=== PATIENT | male | born 1955 ===

== ENCOUNTER → 2020-09-11 12:24 | Outpatient (BNVA) | payer MEDICARE, MEDICAID, SELFPAY | PROVIDERS: PCP Hospitalist; Referring Provider Hospitalist; Visit Provider Physician Assistant | DX: Z01.818 Encounter for other preprocedural examination (principal); Z86.73 Personal history of transient ischemic attack (TIA), and cerebral infarction without residual deficits; Z79.02 Long term (current) use of antithrombotics/antiplatelets | CPT/HCPCS: 99203 ==

== ENCOUNTER → 2020-11-22 09:15 | Outpatient (BNVA) | payer MEDICARE, MEDICAID, SELFPAY | PROVIDERS: PCP Hospitalist; Referring Provider Hospitalist; Visit Provider Nurse Practitioner Gerontology | DX: Z13.89 Encounter for screening for other disorder (principal) | CPT/HCPCS: Q3014 ==

== ENCOUNTER 2021-06-09 21:21 | Emergency (ER) | payer MEDICARE, MEDICAID, SELFPAY ==
[2021-06-09 21:36] VITALS: BP 128/90; BP 163/80; PULSE 88; RESP 16; O2SAT 95; O2SAT 98; BMI 27.1
--- NOTE | 2021-06-09 22:17 | PC.NURSE ---
BEATRIS DAUGHTER, SHE IS PTS RIDE WHEN HE IS DISCHARGED
--- NOTE | 2021-06-09 22:35 | ED.ALCOHOL ---
HPI - Alcohol General Chief Complaint: Fall Stated Complaint: ETOH Time Seen by Provider: 06/09/21 21:53 Source: patient Mode of arrival: EMS History of Present Illness HPI narrative: 65-year-old male alcohol intoxicated brought in by EMS after witnessed fall with head strike and no LOC. Family is at bedside and denies any noted change in patient's mentation. Related Data Home Medications Medication Instructions Recorded Confirmed cholecalciferol (vitamin D3) 50 50 mcg PO DAILY 11/22/20 11/22/20 mcg (2,000 unit) capsule rosuvastatin 40 mg tablet 40 mg PO DAILY 11/22/20 11/22/20 Previous Rx's Medication Instructions Recorded amlodipine 10 mg tablet 10 mg PO DAILY 90 Days #90 tab 01/15/21 carvedilol 25 mg tablet 25 mg PO BID 90 Days #180 tab 01/15/21 clopidogrel 75 mg tablet 75 mg PO DAILY 90 Days #90 tab 01/15/21 lisinopril 10 mg tablet 10 mg PO DAILY 90 Days #90 tab 01/15/21 pregabalin 75 mg capsule 75 mg PO BID 30 Days #60 cap 05/05/21 metformin 500 mg tablet 500 mg PO BID 30 Days #60 tab 05/30/21 insulin glargine 100 unit/mL (3 10 unit SUBCUT DAILY 90 Days #15 ml 05/31/21 mL) subcutaneous pen pen needle, diabetic 32 gauge x #30 ea 05/31/21 5/32 Allergies Allergy/AdvReac Type Severity Reaction Status Date / Time cyclobenzaprine Allergy Unknown Headache Verified 06/09/21 21:39 [From Flexeril] penicillamine Allergy Unknown tongue rash Verified 06/09/21 21:39 penicillin V Allergy Unknown rash Verified 06/09/21 21:39 trazodone Allergy Unknown palpitation Verified 06/09/21 21:39 s Review of Systems Review of Systems: Pertinent positives and negatives as stated in HPI 10 point review of systems otherwise negative. [facility] Past Medical History Source: nursing notes reviewed Medical History CVA (cerebral vascular accident) Diabetes Essential hypertension HTN (hypertension) Hyperlipidemia LDL goal <70 Type 2 diabetes mellitus with diabetic polyneuropathy Vitamin D deficiency Surgical History H/O colonoscopy History of bilateral cataract extraction Family History Family History Family/Other No problems noted. Father Myocardial infarction CVD (cardiovascular disease) Mother Diabetes Sister Diabetes Social History Social History Household Members: None Advance Directives: No Advance Directives Information Provided: Yes Physical Exam Vital Signs: Vital Signs: Last Vital Signs Pulse 88 06/09/21 21:36 Resp 16 06/09/21 21:36 BP 163/80 H 06/09/21 21:36 Pulse Ox 95 06/09/21 21:36 Body Mass Index 27.1 VITAL SIGNS: Reviewed. GENERAL: Alcohol intoxication, Well developed, well nourished, in no acute distress. HEAD: Normocephalic/start laceration over right eyebrow with good hemostasis EYES: PERRLA, EOMI EARS: Ext canals without abnormality, TMs non-bulging and non-erythematous NOSE: Nares patent bilateral OROPHARYNX: no oral lesions noted, posterior pharynx clear NECK: Supple, no adenopathy LUNGS: Normal breath sounds. No adventitious sounds or accessory muscle use. SpO2<95> CARDIOVASCULAR: Regular rate and rhythm without noted murmurs, no JVD or lower extremity edema. ABDOMEN: Soft, non-tender, non-distended with bowel sounds. SKIN: Inspection of the skin reveals no rashes NEUROLOGIC: Alert and oriented x 3, intoxicated, belligerent. Strength and sensation to light touch were grossly intact x 4. Course Course Course Narrative: 65-year-old male with history and clinical presentation consistent with alcohol intoxication leading to gait instability and a fall with head strike and laceration, no LOC. Lacerations repaired patient was provided with a Tdap and discharged home in otherwise stable condition to safe transport and environment with his daughter. Procedures Laceration Laceration 1: Site: face Side (If applicable): right Size (cm): 2 Description: stellate and irregular Depth: simple, single layer Local Anesthetic: lidocaine 2% and with epi Amount of anesthesia used (mL): 2 Pre-repair: wound explored, irrigated extensively and deep structures intact Skin layer closed with: nylon Size (cm): 3-0 Number of sutures: 3 Technique: simple, interrupted Discharge Plan Discharge Clinical Impression: Alcohol intoxication, Laceration Patient Disposition: Home, Self-Care Instructions: Alcohol Intoxication (ED), Alcohol Dependence (ED), Laceration (ED), Care For Your Stitches (ED) Additional Instructions: 1. Follow-up with your primary care provider in the next 5 days for suture removal or return to this ER. Return to ER for acute worsening of symptoms. Prescriptions: No Action amlodipine 10 mg tablet 10 mg PO DAILY 90 Days Qty: 90 RF: 3 carvedilol [Coreg] 25 mg tablet 25 mg PO BID 90 Days Qty: 180 RF: 3 clopidogrel 75 mg tablet 75 mg PO DAILY 90 Days Qty: 90 RF: 3 lisinopril 10 mg tablet 10 mg PO DAILY 90 Days Qty: 90 RF: 3 pregabalin 75 mg capsule 75 mg PO BID 30 Days Qty: 60 RF: 0 metformin 500 mg tablet 500 mg PO BID 30 Days Qty: 60 RF: 1 Basaglar KwikPen U-100 Insulin 100 unit/mL (3 mL) insulin pen 10 unit subcut DAILY 90 Days Qty: 15 RF: 0 (DME) pen needle, diabetic [BD Ultra-Fine Bernie Pen Needle] 32 gauge x 5/32 needle See Rx Instructions .ROUTE .MEDSUPPLY Qty: 30 RF: 11 cholecalciferol (vitamin D3) 50 mcg (2,000 unit) capsule 50 mcg PO DAILY RF: 0 rosuvastatin 40 mg tablet 40 mg PO DAILY RF: 0
[2021-06-09] MEDS: Diphth,Pertus(ACell),Tet Adult 0.5 ML SYRINGE IM (22:52)
[2021-06-09] MEDS: Lidocaine HCl 2%/Epi 1:100,000 20 ML VIAL INFILTRATI (22:53)
--- NOTE | 2021-06-09 23:04 | PC.NURSE ---
PT VERY INTOXICATED WHILE IN ED TONIGHT, COMBATIVE & INAPPROPRIATELY TOUCHING FEMALE STAFF. DR. CALIX SUTURED R EYE BROW, TDAP GIVEN PER EMAR. D/C INSTRUCTIONS GIVEN TO PTS DAUGHTER. PT BROUGHT TO FRONT BY SECURITY
== END 2021-06-09 23:26 | disposition home or self-care (01) ==
PROVIDERS: Emergency Provider Student in an Organized Health Care Education/Training Program
DX: F10.129 Alcohol abuse with intoxication, unspecified (principal); Y90.9 Presence of alcohol in blood, level not specified; S01.111A Laceration without foreign body of right eyelid and periocular area, initial encounter; E11.9 Type 2 diabetes mellitus without complications; I10 Essential (primary) hypertension; Z86.73 Personal history of transient ischemic attack (TIA), and cerebral infarction without residual deficits; Z79.84 Long term (current) use of oral hypoglycemic drugs; Z79.899 Other long term (current) drug therapy; W19.XXXA Unspecified fall, initial encounter; Y93.9 Activity, unspecified; Y92.9 Unspecified place or not applicable; Y99.9 Unspecified external cause status
CPT/HCPCS: 12011; 90471; 90715; 99283; 99284

== ENCOUNTER → 2021-06-15 11:12 | Outpatient (BNVA) | payer MEDICARE, MEDICAID, SELFPAY | PROVIDERS: PCP Hospitalist; Visit Provider Nurse Practitioner Gerontology | DX: E11.42 Type 2 diabetes mellitus with diabetic polyneuropathy (principal); E78.5 Hyperlipidemia, unspecified; I10 Essential (primary) hypertension; Z79.4 Long term (current) use of insulin | CPT/HCPCS: 82947; 99212 ==

== ENCOUNTER 2021-08-09 08:01 | Outpatient (REF) | payer MEDICARE, MEDICAID, SELFPAY ==
[2021-08-09 08:57] LABS: Estimated Average Glucose 131 mg/dL; Hemoglobin A1c % 6.2 %
[2021-08-09 09:04] LABS: Alanine Aminotransferase 30 U/L (0-40); Albumin Level 4.5 g/dL (3.5-5.0); Alkaline Phosphatase 119 U/L (39-117); Anion Gap 14 (12-20); Aspartate Amino Transferase 21 U/L (5-37); Bilirubin Total 0.9 mg/dL (0.0-1.0); Blood Urea Nitrogen 8 mg/dL (9-16); Calcium 9.8 mg/dL (8.4-10.2); Carbon Dioxide 27 mmol/L (22-29); Chloride 102 mmol/L (96-108); Cholesterol 239 mg/dL; Estimated Glomerular Filt Rate > 60; Glucose Fasting 127 mg/dL (60-99); HDL Cholesterol 33 mg/dL; LDL Cholesterol Calculated 150 mg/dl; Potassium 3.9 mmol/L (3.3-5.1); Sodium 139 mmol/L (135-145); Total Protein 7.9 g/dL (6.5-8.0); Triglycerides 283 mg/dL
[2021-08-09 10:02] LABS: Creatinine Urine 37.09 mg/dL; Microalbum/Creatinine Ratio Ur 579.6 ug/mg cr
[2021-08-10 21:21] LABS: LDL Cholesterol Direct 160 mg/dL (<100)
== END 2021-08-09 08:02 | disposition home or self-care (01) ==
LOC: HO.LAB 08:01
PROVIDERS: Absent Provider Nurse Practitioner Family; PCP Internal Medicine; Visit Provider Nurse Practitioner Gerontology
DX: Z12.5 Encounter for screening for malignant neoplasm of prostate (principal); E11.42 Type 2 diabetes mellitus with diabetic polyneuropathy; Z79.4 Long term (current) use of insulin
CPT/HCPCS: 36415; 80053; 80061; 82043; 83036; 83721; 84153

== ENCOUNTER 2022-01-01 10:36 | Outpatient (REF) | payer MEDICARE, MEDICAID, SELFPAY ==
[2022-01-01 10:56] LABS: MANUAL DIFF FLAG NO
[2022-01-01 11:24] LABS: Basophils Absolute Auto 0.1 X10*3/uL (0.0-0.2); Basophils Percent Auto 0.8 % (0-2); Eosinophils Absolute Auto 0.1 X10*3/uL (0.0-0.4); Eosinophils Percent Auto 1.9 % (0-4); Hematocrit 47.5 % (42.0-52.0); Hemoglobin 16.3 g/dl (14.0-18.0); Imm Gran Abs Auto 0.02 X10*3/uL (0.00-0.03); Imm Gran Pct Auto 0.3 % (0.0-0.4); Lymphocytes Absolute Auto 2.3 X10*3/uL (1.2-4.9); Lymphocytes Percent Auto 30.6 % (20-40); Mean Corpuscular HGB Conc 34.3 g/dl (31.0-36.0); Mean Corpuscular Hemoglobin 31.8 pg (27.0-33.0); Mean Corpuscular Volume 92.8 fL (80.0-98.0); Mean Platelet Volume 10.5 fL (9.4-12.4); Monocytes Absolute Auto 0.4 X10*3/uL (0.1-1.2); Monocytes Percent Auto 5.3 % (2-11); Neutrophils Absolute Auto 4.5 x10*3/uL (2.0-8.3); Neutrophils Percent Auto 61.1 % (45-73); Platelet Count 263 X10*3/uL (160-400); Red Blood Count 5.12 X10*6/uL (4.60-5.80); Red Cell Distribution Width 16.1 % (11.0-16.0); White Blood Count 7.4 X10*3/uL (4.8-10.8)
[2022-01-01 12:02] LABS: Alanine Aminotransferase 20 U/L (0-40); Albumin Level 4.3 g/dL (3.5-5.0); Alkaline Phosphatase 123 U/L (39-117); Anion Gap 12 (12-20); Aspartate Amino Transferase 19 U/L (5-37); Bilirubin Total 0.8 mg/dL (0.0-1.0); Blood Urea Nitrogen 6 mg/dL (9-16); Calcium 9.8 mg/dL (8.4-10.2); Carbon Dioxide 30 mmol/L (22-29); Chloride 100 mmol/L (96-108); Cholesterol 263 mg/dL; Estimated Glomerular Filt Rate > 60; Glucose Fasting 121 mg/dL (60-99); HDL Cholesterol 40 mg/dL; LDL Cholesterol Calculated 177 mg/dl; Potassium 4.4 mmol/L (3.3-5.1); Sodium 138 mmol/L (135-145); Triglycerides 234 mg/dL
[2022-01-01 12:19] LABS: Creatinine Urine 27.97 mg/dL
[2022-01-01 12:37] LABS: Microalbum/Creatinine Ratio Ur 2981.7 ug/mg cr
[2022-01-06 14:10] LABS: Vitamin D 25-OH, D2 <4 ng/mL; Vitamin D 25-OH, D3 31 ng/mL; Vitamin D 25-OH, Total 31 ng/mL (30-100)
== END 2022-01-01 10:37 | disposition home or self-care (01) ==
LOC: HO.LAB 10:36
PROVIDERS: PCP Internal Medicine; Visit Provider Internal Medicine
DX: E78.5 Hyperlipidemia, unspecified (principal); E55.9 Vitamin D deficiency, unspecified; D64.9 Anemia, unspecified; E11.42 Type 2 diabetes mellitus with diabetic polyneuropathy; Z79.4 Long term (current) use of insulin
CPT/HCPCS: 36415; 80053; 80061; 82043; 82306; 85025

== ENCOUNTER 2022-07-10 07:51 | Outpatient (REF) | payer MEDICARE, MEDICAID, SELFPAY ==
[2022-07-10 09:13] LABS: Prostate Specific Antigen 1.12 ng/mL (<0.05-4.0)
== END 2022-07-10 07:52 | disposition home or self-care (01) ==
LOC: HO.LAB 07:51
PROVIDERS: Nurse Practitioner Family; PCP Internal Medicine; Visit Provider Internal Medicine
DX: Z12.5 Encounter for screening for malignant neoplasm of prostate (principal)
CPT/HCPCS: 36415; 84153

== ENCOUNTER 2023-01-02 10:39 | Outpatient (REF) | payer MEDICARE, MEDICAID, SELFPAY ==
[2023-01-02 12:45] LABS: Appearance Urine Clear; Color Urine Yellow; Glucose Urine UA Negative (Negative); Leukocyte Esterase Urine Negative (Negative); Nitrite Urine Negative (Negative); Specific Gravity - Urine 1.015 (1.005-1.025); UMIC TRIGGER UA YES; Urine Blood Negative (Negative); Urine Ketones Negative (Negative); Urine Protein 30 (1+) mg/dL (Neg-Trace)
[2023-01-02 12:53] LABS: Bacteria Urine None Seen (None Seen); Hyaline Casts Urine 0-2 /LPF (0-2); RBC Urine 0-2 /HPF (0-2); Squamous Epithelial Cell Urine 0-2 /HPF (0-2); WBC Urine 0-5 /HPF (0-5)
[2023-01-02 12:58] LABS: Anion Gap 14 (12-20); Blood Urea Nitrogen 7 mg/dL (9-16); Calcium 9.2 mg/dL (8.4-10.2); Carbon Dioxide 27 mmol/L (22-29); Chloride 106 mmol/L (96-108); Estimated Glomerular Filt Rate > 60; Potassium 4.8 mmol/L (3.3-5.1); Sodium 142 mmol/L (135-145)
[2023-01-02 13:06] LABS: Creatinine Urine 117.51 mg/dL; Microalbum/Creatinine Ratio Ur 116.5 ug/mg cr; Protein/Creatinine Ratio, Ur 0.32 (<0.2); Total Protein Urine Random 38 mg/dL (<12)
[2023-01-03 07:19] LABS: Hepatitis B Surface Antigen Negative (Negative); ~Hepatitis B Surface Antibody NONREACTIVE (Nonreactive); ~Hepatitis C Antibody Nonreactive (Nonreactive)
[2023-01-03 07:53] LABS: HBsAGNum1 0.25 S/CO (0.00-0.99); ~HepC Num1 0.12 S/CO (0.00-0.79)
[2023-01-07 09:04] LABS: Hepatitis B Core Antibody IgM NON-REACTIVE (NON-REACTIVE)
[2023-01-07 15:48] LABS: Anti Nuclear Antibody Screen NEGATIVE (NEGATIVE)
[2023-01-08 09:09] LABS: Complement C3 134 mg/dL (82-185); Prot Elec - Albumin 4.4 g/dL (3.8-4.8); Prot Elec - Alpha1 0.3 g/dL (0.2-0.3); Prot Elec - Alpha2 0.6 g/dL (0.5-0.9); Prot Elec - Beta 1 0.5 g/dL (0.4-0.6); Prot Elec - Beta 2 0.4 g/dL (0.2-0.5); Prot Elec - Gamma 1.5 g/dL (0.8-1.7); Prot Elec - Total Protein 7.7 g/dL (6.1-8.1)
[2023-01-09 15:43] LABS: Kappa, Serum 315 mg/dL (176-443); Kappa/Lambda Ratio, Serum 1.46 (1.29-2.55); Lambda, Serum 216 mg/dL (91-240)
== END 2023-01-02 10:40 | disposition home or self-care (01) ==
LOC: HO.LAB 10:39
PROVIDERS: PCP Internal Medicine; Visit Provider Internal Medicine Nephrology
DX: R80.1 Persistent proteinuria, unspecified (principal); I10 Essential (primary) hypertension; E11.9 Type 2 diabetes mellitus without complications
CPT/HCPCS: 36415; 80051; 81001; 82043; 82310; 82565; 83883; 84156; 84165; 84520; 86038; 86039; 86160; 86705; 86706; 86803; 87340

== ENCOUNTER 2024-06-30 13:16 | Outpatient (AMB) | payer MEDICARE, MEDICAID, SELFPAY ==
--- NOTE | 2024-06-30 13:42 | A.OFFVIS_ITS ---
Intake Vital Signs 06/30/24 13:43 Height 5 ft 6 in Weight 186 lb BMI 30.0 BP 140/80 H Blood Pressure Location Lt brachial Position Sitting Intake Visit Reasons: Subsequent Annual Wellness State Inspector Required: No Accompanied by: Self / Same As Patient Allergies penicillamine Allergy (Intermediate, Verified 06/30/24 14:32) tongue rash penicillin V Allergy (Intermediate, Verified 06/30/24 14:32) rash trazodone Allergy (Intermediate, Verified 06/30/24 14:32) palpitations cyclobenzaprine [From Flexeril] Adverse Reaction (Intermediate, Verified 06/30/24 14:32) Headache Medication List - Last Reconciled 06/30/24 by Glory Gong MD amlodipine 10 mg PO DAILY 90 days ammonium lactate 12% topical carvedilol (Coreg) 25 mg PO BID 90 days clopidogrel 75 mg PO DAILY 90 days ezetimibe 10 mg PO DAILY 90 days insulin glargine (Basaglar KwikPen U-100 Insulin) 10 units (0.1 mL) subcut DAILY 90 days metformin 500 mg PO BID pen needle, diabetic (BD Ultra-Fine Bernie Pen Needle) As directed once daily pregabalin 75 mg PO BID 30 days rosuvastatin 40 mg PO DAILY 90 days HPI HPI Comments History of Present Illness Details This is a 68-year-old male with diabetes mellitus type 2 complicated by polyneuropathy on long-term current use of insulin that comes today for his Medicare wellness. A1c within goal. Last Cologuard was 2020 and another Cologuard will be repeated this year. Walks with a cane for gait stability. PPP handed to patient. Complains of blurry vision and would like to see Ophthalmology again. [facility] Medical History (Updated 06/30/24 @ 20:24 by Glory Gong MD) Obesity (BMI 30-39.9) Alcohol abuse Microalbuminuria due to type 2 diabetes mellitus Screening for prostate cancer Essential hypertension Hyperlipidemia LDL goal <70 Type 2 diabetes mellitus with diabetic polyneuropathy Vitamin D deficiency CVA (cerebral vascular accident) HTN (hypertension) Diabetes Surgical History History of bilateral cataract extraction H/O colonoscopy Family History Family/Other No problems noted. Father Myocardial infarction CVD (cardiovascular disease) Mother Diabetes Sister Diabetes Social History Household Members: None Housing: Apartment Alcohol intake: current Alcohol intake frequency: a few times a week Alcohol type: beer and hard liquor Patient Tobacco Use Status: Current everyday Tobacco user Tobacco use type: Cigarette Cigarettes Per Day: 5 e-Cigarette/Vaping Use: Never Used Second Hand Smoke Exposure: No service: No Current occupational status: unemployed and disabled Cognitive needs: Yes Hearing needs: No Vision needs: No Questionnaire Medicare Wellness Checkup What [age] What gender do you identify with?: male During the past 4 weeks, how much have you been bothered by emotional problems such as feeling anxious, depressed, irritable, sad or downhearted, and blue?: not at all During the past 4 weeks, has your physical & emotional health limited your social activities with family, friends, neighbors, or groups?: not at all During the past 4 weeks, how much bodily pain have you generally had?: moderate pain During the past 4 weeks, was someone available to help you if you needed & wanted help?: no, not at all During the past 4 weeks, what was the hardest physical activity you could do for at least 2 minutes?: very light Can you get to places out of walking distance without help? (For eg., can you travel alone on buses, taxis or drive your car?): No Can you go shopping for groceries or clothes without someone's help?: Yes Can you prepare your own meals?: Yes Can you do your housework without help?: Yes (limited ) Because of any health problems, do you need the help of another person with your personal care needs such as eating, bathing, dressing or getting around the house?: No Can you handle your own money without help?: Yes During the past 4 weeks, how would you rate your health in general?: good During the past 4 weeks how have things been going for you?: pretty well Are you having difficulties driving your car?: not applicable, I don't use a car Do you always fasten your seat belt when you are in a car?: yes, usually During past 4 weeks, have you been bothered by the following: never: Sexual problems?, Trouble eating well?, Teeth or denture problems?, Problems using the telephone? and Tiredness or fatigue? and seldom: Falling or dizzy when standing up Have you fallen 2 or more times in the past year?: No Are you afraid of falling?: Yes Are you a smoker?: yes, and I might quit During the past 4 weeks, how many drinks of wine, beer, or other alcoholic beverages did you have?: 10 or more per week Do you exercise for about 20 minutes 3 or more times a week?: no, I usually do not exercise this much Have you been given information to help with the following?: yes: Keeping track of your medications? and no: Hazards in your house that might hurt you? How often do you have trouble taking medicines the way you have been told to take them?: I always take medicine as prescribed How confident are you that you can control & manage most of your health problems?: very confident What is your race?: or origin or descent Mini Mental State Exam (MMSE) Orientation What is the (year) (season) (date) (day) (month)?: year, season, date, day and month Where are we (state) (county) (town or city) (hospital) (floor)?: state, county, town or city and hospital/clinic Registration Name of 3 unrelated objects clearly and slowly, then ask patient to repeat all 3 of them. (1st repeat determines score. Make sure they can repeat all three): object 1, object 2 and object 3 Attention & Calculation (CHOOSE ONE) Spell WORLD backwards (DLROW): 5 letters Recall Ask patient to repeat the 3 items from question #3.: object 1, object 2 and object 3 Language Show patient a wristwatch & ask what it is. Repeat for pencil.: watch and pencil Ask the patient to repeat the phrase 'No ifs, ands, or buts' after you.: incorrect Ask the patient to 'take a piece of paper with their right hand' 'fold paper in half' 'place paper on floor': take paper in right hand, fold paper in half and place paper on floor Print the sentence 'CLOSE YOUR EYES' on a piece. If patient actually closes eyes then score.: followed written direction Score Score: 26 Activity of Daily Living Bathing - sponge bath, tub bath or shower: receives no assistance (gets in/out by self, if usual bathing means Dressing - getting clothes from closets & drawers, including inner/outer garments & fasteners.: gets clothes & gets completely dressed without help Toileting - going to the 'toilet room' for urine/bowel elimination & cleaning self/arranging clothes: goes to toilet room, cleans self, arranges clothes without help Transfer: moves in & out of bed and chair without help (may use support object) Continence: controls urination/bowel movements completely by self Feeding: feeds self without help Total Score: 0 Information obtained from: patient Using telephone: independent Traveling: independent Shopping: independent Preparing meals: independent Housework: independent Taking medicine: independent Managing money: independent PHQ-9 Over the last 2 weeks, how often have you been bothered by any of the following problems? 1. Little interest or pleasure in doing things: not at all 2. Feeling down, depressed, or hopeless: not at all 3. Trouble falling or staying asleep, or sleeping too much: not at all 4. Feeling tired or having little energy: not at all 5. Poor appetite or overeating: not at all 6. Feeling bad about yourself - or that you are a failure or have let yourself or your family down: not at all 7. Trouble concentrating on things, such as reading the newspaper or watching television: not at all 8. Moving or speaking so slowly that other people could have noticed. Or the opposite - being so fidgety or restless that you have been moving around a lot more than usual: not at all 9. Thoughts that you would be better off or of hurting yourself in some way: not at all Total score: 0 Depression Screening Interpretation: Negative Depression Screening Done: Yes 61455 - PHQ-9 Billing: Yes Source: Developed by Drs. Idris Orellana, Tova Santiago, Andrey Mir and colleagues, with an educational royer from [employer]. AUDIT C Alcohol Use Questionnaire (AUDIT-C) 1. How often do you have a drink containing alcohol?: 2-3 times a week 2. How many drinks containing alcohol do you have on a typical day when you are drinking?: 3 or 4 3. How often do you have six or more drinks on one occasion?: Never Total Score: 4 Thrive Questionnaire Date Thrive assessed: 06/30/24 I am a: Patient What is your living situation today?: I have a steady place to live Within the past 12 months, did the food you bought not last and you didn't have the money to get more?: Never true Within the past 12 months, did you worry whether your food would run out before you got money to buy more?: Never true Do you have trouble paying for medicines?: No Do you have trouble getting transportation to medical appointments?: No Do you have trouble paying your heating and electricity bill?: No Do you have trouble taking care of your child, family member or friend?: No Do you have trouble with day-to-day activities such as bathing, preparing meals, shopping, managing finances, etc.?: No Are you currently unemployed and looking for a job?: No Are you interested in more education?: No Please select the resources that you would like help with: None Currently or been in a relationship where the following occur: No concerns reported THRIVE Score: 0 Fall Risk Assessment Fall Risk Assessment Fall risk assessment: No Falls in past year PANFILO-7 AMB Questionnaire PANFILO-7 Date PANFILO - 7 assessed: 06/30/24 Feeling nervous, anxious, or on edge: 0 = Not at all Not being able to stop or control worryin = Not at all Worrying too much about different things: 0 = Not at all Trouble relaxin = Not at all Being so restless that it is hard to sit still: 0 = Not at all Becoming easily annoyed or irritable: 0 = Not at all Feeling afraid as if something awful might happen: 0 = Not at all Total PANFILO-7 score (0-4 normal; 5-9 mild; 10-14 moderate; 15-21 severe): 0 Source: Developed by Drs. Idris Orellana, Tova Santiago, Andrey Mir and colleagues, with an educational royer from [employer]. PANFILO-7 Assessment Billing PANFILO-7 Assessment Tool: PANFILO-7 Assessment 00454 Review of Systems Const All systems reviewed & are unremarkable except as noted in HPI and below Card Denies chest pain at rest, Denies chest pain with activity, Denies edema, Denies irregular heart rhythm, Denies claudication, Denies dyspnea, Denies dyspnea on exertion, Denies orthopnea, Denies paroxysmal nocturnal dyspnea and Denies slow heart rate Resp Denies cough, Denies dyspnea and Denies dyspnea on exertion Physical Exam Vital Signs: Last Vital Signs BP 140/80 H 06/30/24 13:43 BMI result Body Mass Index 30.0 Const Limitations: ambulation with cane Resp Effort & Inspection: normal respiratory effort Auscultation: clear to auscultation bilaterally Cardio Jugular venous distension: no JVD Rate: regular rate Rhythm: regular rhythm Heart sounds: S1 normal heart sound present and S2 normal heart sound present Neuro Romberg Test: Negative Extrem General: Yes full ROM Results AMB Hemoglobin A1c AMB Hemoglobin A1c 6.2 % Last Edit by CHRISSIE Hester on 06/30/24 14:1 2 Immunizations pneumoc 20-regina conj-dip cr(PF) 0.5 mL IM syringe Performing Provider: Glory Gong MD Performing Location: [facility] Administered by: CHRISSIE Hester on 06/30/24 14:51 Dose Route Admin Location Dispensed Lot Number Expiration Date NDC Nurse Special 0.5 mL IM Left Deltoid 0.5 mL [id number] 06/24/25 [employer] VIS Given Date VIS Provided VIS Publication Date 06/30/24 Single Vaccine 21 Eligibility Eligibility Date Funding Source Not VFC Eligible 06/30/24 Private Results Reviewed Results Reviewed: Laboratory Last Values Hgb A1c (Clinic) 6.2 % (4.0-6.0) H 06/30/24 13:58 Assessment & Plan Assessment & Plan (1) Encounter for Medicare annual wellness exam: Code(s): Z00.00 - Encounter for general adult medical examination without abnormal findings Plan: Repeat in a year. (2) Type 2 diabetes mellitus with diabetic polyneuropathy: Code(s): E11.42 - Type 2 diabetes mellitus with diabetic polyneuropathy Qualifiers: Diabetes mellitus half-way insulin use: with half-way use Qualified Code(s): E11.42 - Type 2 diabetes mellitus with diabetic polyneuropathy; Z79.4 - local company intermodal truck driver (current) use of insulin Plan: Continue insulin and metformin. A1c goal is equal or less than 7%. (3) Blurry vision: Code(s): H53.8 - Other visual disturbances Plan: Referred to Ophthalmology. Orders: Orders AMB Hemoglobin A1c Today E11.42 - Type 2 diabetes mellitus with diabetic polyneuropathy, Z79.4 - local company intermodal truck driver (current) use of insulin Lipid Panel 4 Months E78.5 - Hyperlipidemia, unspecified Microalbumin, Random (w Creat) 4 Months E11.9 - Type 2 diabetes mellitus without complications Pneumococcal 20 Immunization Today Z23 - Encounter for immunization Comprehensive [place]. Panel Fast 4 Months E11.42 - Type 2 diabetes mellitus with diabetic polyneuropathy, Z79.4 - local company intermodal truck driver (current) use of insulin Referrals Ophthalmology Referral H53.8 - Other visual disturbances Cologuard Test Z12.11 - Encounter for screening for malignant neoplasm of colon, Z12.12 - Encounter for screening for malignant neoplasm of rectum Quality Reporting (2019) Fall Risk Screening ([facility] [address]) Fall risk assessment: No Falls in past year Depression/Bipolar (159/160/161/177) PHQ-9: Total score: 0 Coding Level of Care Code Medicare First (G0438) Est Pt Level 3 (19951) Diagnoses Encounter for Medicare annual wellness exam Z00.00 Type 2 diabetes mellitus with diabetic polyneuropathy, with long-term current use of insulin E11.42; Z79.4 Diabetes mellitus half-way insulin use: with technician terminal and repeater use Blurry vision H53.8 CPT Codes Advance Care Planning - Time spent: 1-15 minutes, on File ([id number]) Additional Codes PANFILO-7 Assessment Billing - PANFILO-7 Assessment Tool: PANFILO-7 Assessment 45620 ([id number]) Time Spent (min) 35 Advance Care Planning Advance Care Planning discussion: Exists, not on file Date of discussion: 06/30/24 Who was present: patient and me Forms completed: Health Care Proxy Time spent: 1-15 minutes, on File Actual minutes spent: 1
[2024-06-30 13:43] VITALS: BP 140/80
== END 2024-06-30 14:51 | disposition home or self-care (01) ==
PROVIDERS: PCP Internal Medicine; Visit Provider Internal Medicine
DX: Z00.00 Encounter for general adult medical examination without abnormal findings (principal); E11.42 Type 2 diabetes mellitus with diabetic polyneuropathy; Z79.4 Long term (current) use of insulin; Z23 Encounter for immunization; H53.8 Other visual disturbances
CPT/HCPCS: 1123F; 83036; 90471; 90677; 99213; G0438; G0439

== ENCOUNTER 2024-12-06 10:18 | Outpatient (AMB) | payer MEDICARE, MEDICAID, SELFPAY ==
[2024-12-06 10:30] VITALS: BP 124/70
--- NOTE | 2024-12-06 10:30 | A.OFFPC_ITS ---
Vital Signs 12/06/24 10:30 Height 5 ft 6 in Weight 186 lb BMI 30.0 BP 124/70 Blood Pressure Location Lt brachial Position Sitting Intake Visit Reasons: 4mth f/u Intake Note: Patient here for a 4 month follow up Radiological Defense Officer Required: Yes Radiological Defense Officer Language: Package Dyer Name: Glory Gong MD Accompanied by: Self / Same As Patient Allergies penicillamine Allergy (Intermediate, Verified 12/06/24 10:43) tongue rash penicillin V Allergy (Intermediate, Verified 12/06/24 10:43) rash trazodone Allergy (Intermediate, Verified 12/06/24 10:43) palpitations cyclobenzaprine [From Flexeril] Adverse Reaction (Intermediate, Verified 12/06/24 10:43) Headache Medication List - Last Reconciled 12/06/24 by Glory Gong MD amlodipine 10 mg PO DAILY 90 days ammonium lactate 12% topical carvedilol (Coreg) 25 mg PO BID 90 days clopidogrel 75 mg PO DAILY 90 days ezetimibe 10 mg PO DAILY 90 days insulin degludec (Tresiba FlexTouch U-100 insulin) 10 units (0.1 mL) subcut DA JAVIER 90 days insulin glargine (Basaglar KwikPen U-100 Insulin) 10 units (0.1 mL) subcut DAILY 90 days metformin 500 mg PO BID pen needle, diabetic (BD Ultra-Fine Bernie Pen Needle) As directed once daily pregabalin 75 mg PO BID 30 days rosuvastatin 40 mg PO DAILY 90 days Tobacco use date assessed: 12/06/24 Fall risk assessment: No Falls in past year Last assessed Fall Risk: 12/06/24 Dental Screening Dental Screen Date: 12/06/24 Did you have a dental visit in the last 12 months?: No Did you have a dental problem in the last 6 months where you did not have access to dental care?: No Was dental information given to patient?: Patient has dentist HPI HPI Comments History of Present Illness Details The patient is a 69-year-old male presenting with follow-up concerns regarding medication management for hypertension, diabetes mellitus type 2 on long-term current use of insulin complicated by polyneuropathy and hypercholesterolemia. The patient reports taking Lisinopril, 10 mg, for hypertension and Carvedilol, 25 mg daily, along with Ezetimibe, 10 mg, for cholesterol. He also takes Clopidogrel, 75 mg, for coronary artery disease. The patient notes a history of cerebrovascular accident with no residual deficit diagnosed in 2007, without persistent weakness on either side. He has a known allergy to penicillamine, penicillin, trazodone, and Flexeril. He reports regular tobacco use, smoking five cigarettes daily, and expresses no interest in cessation. Will order ultrasound of abdomen to rule out abdominal aortic aneurysm. The patient indicates routine physical function without significant limitations, although he occasionally uses a cane. There is no report of recent chest pain or significant shortness of breath. He does not currently take low- dose aspirin for stroke prevention but is on Clopidogrel. Past interventions have included routine management and medications aimed at his chronic conditions. [facility] Medical History (Updated 06/30/24 @ 20:24 by Glory Gong MD) Obesity (BMI 30-39.9) Alcohol abuse Microalbuminuria due to type 2 diabetes mellitus Screening for prostate cancer Essential hypertension Hyperlipidemia LDL goal <70 Type 2 diabetes mellitus with diabetic polyneuropathy Vitamin D deficiency CVA (cerebral vascular accident) HTN (hypertension) Diabetes Surgical History History of bilateral cataract extraction H/O colonoscopy Family History Family/Other No problems noted. Father Myocardial infarction CVD (cardiovascular disease) Mother Diabetes Sister Diabetes Social History Household Members: None Housing: Apartment Alcohol intake: current Alcohol intake frequency: a few times a week Alcohol type: beer and hard liquor Patient Tobacco Use Status: Current everyday Tobacco user Tobacco use type: Cigarette Cigarettes Per Day: 5 e-Cigarette/Vaping Use: Never Used Second Hand Smoke Exposure: No service: No Current occupational status: unemployed and disabled Cognitive needs: Yes Hearing needs: No Vision needs: No Questionnaire PHQ-9 Over the last 2 weeks, how often have you been bothered by any of the following problems? 1. Little interest or pleasure in doing things: not at all 2. Feeling down, depressed, or hopeless: not at all 3. Trouble falling or staying asleep, or sleeping too much: not at all 4. Feeling tired or having little energy: not at all 5. Poor appetite or overeating: not at all 6. Feeling bad about yourself - or that you are a failure or have let yourself or your family down: not at all 7. Trouble concentrating on things, such as reading the newspaper or watching television: not at all 8. Moving or speaking so slowly that other people could have noticed. Or the opposite - being so fidgety or restless that you have been moving around a lot more than usual: not at all 9. Thoughts that you would be better off or of hurting yourself in some way: not at all Total score: 0 Depression Screening Interpretation: Negative Depression Screening Done: Yes 90136 - PHQ-9 Billing: Yes Source: Developed by Drs. Idris Orellana, Tova Santiago, Andrey Mir and colleagues, with an educational royer from [employer]. Thrive Questionnaire Date Thrive assessed: 12/06/24 I am a: Patient What is your living situation today?: I have a steady place to live Within the past 12 months, did the food you bought not last and you didn't have the money to get more?: Never true Within the past 12 months, did you worry whether your food would run out before you got money to buy more?: Never true Do you have trouble paying for medicines?: No Do you have trouble getting transportation to medical appointments?: No Do you have trouble paying your heating and electricity bill?: No Do you have trouble taking care of your child, family member or friend?: No Do you have trouble with day-to-day activities such as bathing, preparing meals, shopping, managing finances, etc.?: No Are you currently unemployed and looking for a job?: No Are you interested in more education?: No Please select the resources that you would like help with: None Currently or been in a relationship where the following occur: No concerns reported THRIVE Score: 0 AUDIT C Alcohol Use Questionnaire (AUDIT-C) 1. How often do you have a drink containing alcohol?: 2-4 times a month 2. How many drinks containing alcohol do you have on a typical day when you are drinking?: 1 or 2 3. How often do you have six or more drinks on one occasion?: Never Total Score: 2 Score Reviewed/Action Taken: No PANFILO-7 AMB Questionnaire PANFILO-7 Date PANFILO - 7 assessed: 12/06/24 Feeling nervous, anxious, or on edge: 0 = Not at all Not being able to stop or control worryin = Not at all Worrying too much about different things: 0 = Not at all Trouble relaxin = Not at all Being so restless that it is hard to sit still: 0 = Not at all Becoming easily annoyed or irritable: 0 = Not at all Feeling afraid as if something awful might happen: 0 = Not at all Total PANFILO-7 score (0-4 normal; 5-9 mild; 10-14 moderate; 15-21 severe): 0 Source: Developed by Drs. Idris Orellana, Tova Santiago, Andrey Mir and colleagues, with an educational royer from [employer]. PANFILO-7 Assessment Billing PANFILO-7 Assessment Tool: PANFILO-7 Assessment 47727 Review of Systems Const All systems reviewed & are unremarkable except as noted in HPI and below Card Denies chest pain at rest, Denies chest pain with activity, Denies edema, Denies irregular heart rhythm, Denies claudication, Denies dyspnea, Denies dyspnea on exertion, Denies orthopnea, Denies paroxysmal nocturnal dyspnea and Denies slow heart rate Resp Denies cough, Denies dyspnea and Denies dyspnea on exertion GI Denies abdominal pain, Denies change in bowel habits, Denies excessive flatus, Denies nausea and Denies vomiting Musc Denies abnormal gait Neuro Denies abnormal gait, Denies behavioral changes and Denies lack of coordination Psych Denies behavioral changes Physical exam (Primary Care) Vital Signs: Last Vital Signs BP 124/70 12/06/24 10:30 BMI result Body Mass Index 30.0 BMI Assessment/Plan discussion: High BMI High, discussed plan: lifestyle, weight reduction, dietary and physical activity Tobacco/Smoking Status: Tobacco use Status Tobacco use date assessed 12/06/24 12/06/24 10:36 Patient Tobacco Use Status Current everyday Tobacco 12/06/24 10:30 Tobacco use type Cigarette 12/06/24 10:30 e-Cigarette/Vaping Use Never Used 12/06/24 10:30 Are you ready to quit: No Tobacco cessation counseling provided: Yes Items discussed: Nicotine replacement and QuitWorks Relapse Prevention: discussed the importance of a supportive environment, dis cussed extending NRT, discussed negative mood or depression after quitting, weight gain after smoking is common and discussed dietary, exercise and/or lifestyle changes Number of minutes spent counselin CPT code: 97365 - 4-10 Minutes PHQ-9: PHQ-9 Score PHQ-9: Total score 0 12/06/24 10:47 Depression Screening Interpretation: Negative Thrive Assessment: Date of Thrive Assessment Date Thrive assessed 12/06/24 12/06/24 10:36 Currently or been in a relationship where the following occur: No concerns reported Const General: cooperative Limitations: ambulation with cane Resp Effort & Inspection: normal respiratory effort Auscultation: clear to auscultation bilaterally Cardio Jugular venous distension: no JVD Rate: regular rate Rhythm: regular rhythm Heart sounds: S1 normal heart sound present and S2 normal heart sound present Neuro General: no focal motor deficits Extrem General: Yes full ROM Psych Appearance: grossly normal Office Procedures Flu Questionnaire Does the patient have a severe egg allergy?: No Results AMB Hemoglobin A1c AMB Hemoglobin A1c 6.1 % Last Edit by CHRISSIE Hester on 12/06/24 10:4 8 Immunizations Fluarix Triv [id number] (PF) 45 mcg (15 mcg x 3)/0.5 mL IM syringe Performing Provider: Glory Gong MD [facility] [place] Documented (not given) by: CHRISSIE Hester on 12/06/24 10:54 Reason Not Given: Patient Refused Results Reviewed Results Reviewed: Laboratory Last Values Hgb A1c (Clinic) 6.1 % (4.0-6.0) H 12/06/24 10:37 Coding Level of Care Code Est Pt Level 4 (12814) Complex EM visit Add On G2211 Diagnoses Type 2 diabetes mellitus with diabetic polyneuropathy, with long-term current use of insulin E11.42; Z79.4 Diabetes mellitus medical terminologist insulin use: with medical terminologist use Essential hypertension I10 Hyperlipidemia LDL goal <70 E78.5 Smoker F17.200 Additional Codes PHQ-9 - 19609 - PHQ-9 Billing: Yes ([id number]) PANFILO-7 Assessment Billing - PANFILO-7 Assessment Tool: PANFILO-7 Assessment 97000 ([id number]) Vital Signs *Quality* - CPT code: 18450 - 4-10 Minutes ([id number]) Time Spent (min) 24 Assessment & Plan Assessment & Plan (1) Type 2 diabetes mellitus with diabetic polyneuropathy: Code(s): E11.42 - Type 2 diabetes mellitus with diabetic polyneuropathy Category: Medical Qualifiers: Diabetes mellitus residential insulin use: with medical terminologist use Qualified Code(s): E11.42 - Type 2 diabetes mellitus with diabetic polyneuropathy; Z79.4 - parts counterman (current) use of insulin (2) Essential hypertension: Code(s): I10 - Essential (primary) hypertension Category: Medical (3) Hyperlipidemia LDL goal <70: Code(s): E78.5 - Hyperlipidemia, unspecified Category: Medical (4) Smoker: Code(s): F17.200 - Nicotine dependence, unspecified, uncomplicated Category: Social Hx Plan - Assess for potential medication adjustments, specifically considering the substitution of Clopidogrel with Aspirin for antiplatelet therapy. - Continue current antihypertensive and hypercholesterolemia management with Lisinopril, Carvedilol, and Ezetimibe. - Schedule an abdominal ultrasound to screen for aortic aneurysm due to smoking history. - Perform routine lab work including anemia assessment and urinalysis. - Provide support and counseling for tobacco cessation with appropriate resour kyara and follow-up. Patient was informed and verbally consented to the use of an ambient scribe for clinic note documentation during this visit. During our discussion, I explained the potential to replace Clopidogrel with Aspirin as an antiplatelet treatment. We reviewed the need for an abdominal ultrasound to rule out an aortic aneurysm due to the patient's smoking history. We discussed the importance of obtaining routine labs to manage anemia and monitor overall health. I provided information on smoking cessation, acknowledging potential withdrawal symptoms and mood changes associated with quitting. Follow-up for ongoing management and laboratory work was recommended. Orders: Orders Influenza [id number] Immunization Today Z23 - Encounter for immunization Microalbumin, Random (w Creat) Today R80.9 - Proteinuria, unspecified Vitamin D 25-OH Total Today E55.9 - Vitamin D deficiency, unspecified Comprehensive [place]. Panel Fast Today E11.42 - Type 2 diabetes mellitus with diabetic polyneuropathy, Z79.4 - senior care (current) use of insulin US abdominal aortic aneurysm Today F17.200 - Nicotine dependence, unspecified, uncomplicated AMB Hemoglobin A1c Today E11.42 - Type 2 diabetes mellitus with diabetic polyneuropathy, Z79.4 - parts counterman (current) use of insulin Lipid Panel Today E78.5 - Hyperlipidemia, unspecified Medications: New aspirin 81 mg PO DAILY 90 days 90 tabs 1RF Refilled pregabalin 75 mg PO BID 30 days 60 caps 0RF carvedilol (Coreg) must administer with a meal/food 25 mg PO BID 90 days 180 tabs 3RF Discontinued clopidogrel Discontinued Reason: Patient Completed Course 75 mg PO DAILY 90 days 90 tabs 3RF Patient Instructions: - Continue taking your medications as prescribed. - Attend the scheduled appointment for an abdominal ultrasound. - Complete the prescribed laboratory tests, including urinalysis, as instructed. - Begin the smoking cessation plan; reach out for support if withdrawal symptoms become challenging. - Report any new symptoms, such as chest pain or difficulty breathing, immediately.
== END 2024-12-06 10:52 | disposition home or self-care (01) ==
PROVIDERS: PCP Internal Medicine; Visit Provider Internal Medicine
DX: E11.42 Type 2 diabetes mellitus with diabetic polyneuropathy (principal); Z79.4 Long term (current) use of insulin; I10 Essential (primary) hypertension; E78.5 Hyperlipidemia, unspecified; F17.200 Nicotine dependence, unspecified, uncomplicated; Z23 Encounter for immunization

== ENCOUNTER → 2024-12-06 10:18 | Outpatient (BNVA) | payer MEDICARE, MEDICAID, SELFPAY | PROVIDERS: PCP Internal Medicine; Visit Provider Internal Medicine | DX: E11.42 Type 2 diabetes mellitus with diabetic polyneuropathy (principal); I10 Essential (primary) hypertension; E78.5 Hyperlipidemia, unspecified; F17.200 Nicotine dependence, unspecified, uncomplicated; Z79.4 Long term (current) use of insulin; Z71.6 Tobacco abuse counseling | CPT/HCPCS: 83036; 90471; 96127; 99212 ==

== ENCOUNTER 2024-12-24 08:05 | Outpatient (REF) | payer MEDICARE, MEDICAID, SELFPAY ==
--- OUTSIDE RECORDS SUMMARY | 2024-12-24 08:09 | XMS_ITS | Clinical Summary ---
Author Organization [facility] Facility Address [address] [place] [address], [place] [address] Care Team Providers Care Director Counseling Bureau Name Role Phone Glory Castillo MD Primary Care Provider [phone] Allergies Active Allergy Reactions Criticality Noted Date Comments Penicillins 08/10/2014 Medications potassium chloride (KLOR-CON M20) 20 MEQ CR tablet Take 20 mEq by mouth 7 Active insulin glargine (Lantus SoloStar) 100 UNIT/ML injection Inject 15 Units under the skin 7 Active Dulaglutide (Trulicity) 0.75 MG/0.5ML solution pen-injector JENISE MCKNIGHT* ER *INJECT 0.5 ML SUBCUTANEOUSLY WEEKLY 7 Active clopidogrel (PLAVIX) 75 MG tablet Take 1 tablet by mouth 1 (one) time each day 7 Active chlorthalidone 25 MG tablet Take 1 tablet by mouth 1 (one) time each day 7 Active carvedilol (COREG) 25 MG tablet Take 1 tablet by mouth in the morning and 1 tablet in the evening. Take with meals. 8 Active atorvastatin (LIPITOR) 80 MG tablet Take 1 tablet by mouth 1 (one) time each day 7 Active amLODIPine (NORVASC) 5 MG tablet Take 10 mg by mouth 1 (one) time each day 8 Active rosuvastatin (CRESTOR) 40 MG tablet TOME YARI TABLETA TODOS LOS D 2 Active metFORMIN (GLUCOPHAGE) 500 MG tablet TOME YARI TABLETA DOS VECES AL D A 2 Active pregabalin (LYRICA) 75 MG capsule TOME 1 C PSULA POR V A ORAL DOS VECES AL D A 2 Active ezetimibe (ZETIA) 10 MG tablet TOME YARI TABLETA TOS LOS D 2 Active Active Problems Problem Noted Date Diagnosed Date Proteinuria 09/24/2022 Spinal stenosis of lumbar region 07/31/2016 Type 2 diabetes mellitus without complication Hypertension 08/10/2014 Hyperlipidemia 08/10/2014 History of cerebrovascular disease 08/10/2014 Immunizations Name Administration Dates Next Due Influenza, Unspecified 12/02/2016,08/24/2014 Tdap 12/13/2015 Social History Tobacco Use Types Packs/Day Years Used Date Smoking Tobacco: Never Smokeless Tobacco: Never Tobacco Cessation:Counseling Given: Not Answered Alcohol Use Standard Drinks/Week Comments Never 0 (1 standard drink = 0.6 oz pur e alcohol) Sex and Gender Information Value Date Recorded Sex Assigned at Not on file Legal Sex Male 10:03 AM EDT Gender Identity Not on file Sexual Orientation Not on file Last Filed Vital Signs Vital Sign Reading Time Taken Comments Blood Pressure 144/60 01/20/2023 1:00 PM EST Pulse 84 01/20/2023 1:00 PM EST Temperature - - Respiratory Rate - - Oxygen Saturation 96% 01/20/2023 1:00 PM EST Inhaled Oxygen Concentration - - Weight 91 kg (200 lb 9.6 oz) 01/20/2023 1:00 PM EST Height - - Body Mass Index - - Plan of Treatment Health Maintenance Due Date Last Done Comments Pneumococcal Vaccine: 65+ Years (1 of 2 - PCV) 1960 Colorectal Cancer Screening: Annual FOBT 2003 Colorectal Cancer Screening: Colonoscopy 2003 Colorectal Cancer Screening: Sigmoidoscopy 2003 Diabetes: Hemoglobin A1C 06/26/2022 Diabetes: Ophthalmology Exam 06/26/2022 Diabetes: Pedal Pulse Checked 06/26/2022 Diabetes: Sensory Foot Exam 06/26/2022 Diabetes: Visual Foot Exam 06/26/2022 Influenza Vaccine (#1) 2024 7, 08/24/2014 Hepatitis B Vaccine Aged Out No longe r eligible based on patient's age to complete this topic Insurance [place] Care Teams Director Counseling Bureau Relationship Specialty Start Date End Date Glory Castillo MD [address] [place], [place] PCP - General Internal Medicine 06/26/22
[2024-12-24 09:02] LABS: Creatinine Urine 22.17 mg/dL; Microalbum/Creatinine Ratio Ur 1560.6 ug/mg cr (<30)
[2024-12-24 09:10] LABS: Alanine Aminotransferase 29 U/L (0-40); Albumin Level 4.6 g/dL (3.5-5.0); Alkaline Phosphatase 117 U/L (39-117); Anion Gap 12 (12-20); Aspartate Amino Transferase 25 U/L (5-37); Bilirubin Total 0.6 mg/dL (0.0-1.0); Blood Urea Nitrogen 8 mg/dL (9-16); Calcium 10.2 mg/dL (8.4-10.2); Carbon Dioxide 28 mmol/L (22-29); Chloride 103 mmol/L (96-108); Cholesterol 211 mg/dL (<200); Estimated Glomerular Filt Rate > 60; Glucose Fasting 104 mg/dL (60-99); HDL Cholesterol 33 mg/dL (>40); LDL Cholesterol Calculated 146 mg/dL (<100); Potassium 4.1 mmol/L (3.3-5.1); Sodium 139 mmol/L (135-145); Total Protein 8.8 g/dL (6.5-8.0); Triglycerides 164 mg/dL (<150)
[2024-12-24 09:26] LABS: Vitamin D 25-OH Total 12.5 ng/mL (>30)
== END 2024-12-24 08:06 | disposition home or self-care (01) ==
LOC: HO.LAB 08:05
PROVIDERS: PCP Internal Medicine; Visit Provider Internal Medicine
DX: E11.42 Type 2 diabetes mellitus with diabetic polyneuropathy (principal); E78.5 Hyperlipidemia, unspecified; E55.9 Vitamin D deficiency, unspecified; Z79.4 Long term (current) use of insulin
CPT/HCPCS: 36415; 80053; 80061; 82043; 82306; 82570

== ENCOUNTER 2025-01-14 11:14 | Outpatient (AMB) | payer MEDICARE, MEDICAID, SELFPAY ==
--- NOTE | 2025-01-14 11:37 | HO.NEPHOV ---
Vital Signs 01/14/25 11:41 Height 5 ft 6 in Weight 189 lb 2 oz BMI 30.5 BP 122/60 Blood Pressure Location Rt brachial Position Sitting Intake Visit Reasons: INP: Proteinuria/ Conf Import Coordination And Production Head Required: Yes Import Coordination And Production Head Language: Chief Of Pediatric Urology Services: Import Coordination And Production Head Present Import Coordination And Production Head Name: Pérez [id number] Accompanied by: Self / Same As Patient Allergies penicillamine Allergy (Intermediate, Verified 01/14/25 11:40) tongue rash penicillin V Allergy (Intermediate, Verified 01/14/25 11:40) rash trazodone Allergy (Intermediate, Verified 01/14/25 11:40) palpitations cyclobenzaprine [From Flexeril] Adverse Reaction (Intermediate, Verified 01/14/25 11:40) Headache HPI Comments Details: I had the privilege of seeing Blake who is a 69-year-old male with hypertension as well as diabetes mellitus type 2 on long-term current use of insulin complicated by polyneuropathy . He has hypercholesterolemia. He has been taking Lisinopril, 10 mg, for hypertension and Carvedilol, 25 mg daily, along with Ezetimibe, 10 mg, for cholesterol. He also takes Clopidogrel, 75 mg, for coronary artery disease. He has a history of cerebrovascular accident with no residual deficit diagnosed in 2007, without persistent weakness on either side. He reports regular tobacco use, smoking five cigarettes daily. He denies chest pain, significant shortness of breath, edema or urinary symptoms. His renal functions are normal. He has been having proteinuria but denies any systemic complaints. [facility] Medical History (Updated 02/25/25 @ 09:33 by Marc Alexander MD) Obesity (BMI 30-39.9) Alcohol abuse Microalbuminuria due to type 2 diabetes mellitus Screening for prostate cancer Essential hypertension Hyperlipidemia LDL goal <70 Type 2 diabetes mellitus with diabetic polyneuropathy Vitamin D deficiency CVA (cerebral vascular accident) HTN (hypertension) Diabetes Surgical History History of bilateral cataract extraction H/O colonoscopy Family History Family/Other No problems noted. Father Myocardial infarction CVD (cardiovascular disease) Mother Diabetes Sister Diabetes Social History Household Members: None Housing: Apartment Alcohol intake: current Alcohol intake frequency: a few times a week Alcohol type: beer and hard liquor Patient Tobacco Use Status: Current everyday Tobacco user Tobacco use type: Cigarette Cigarettes Per Day: 5 e-Cigarette/Vaping Use: Never Used Second Hand Smoke Exposure: No service: No Current occupational status: unemployed and disabled Cognitive needs: Yes Hearing needs: No Vision needs: No Review of Systems Const All systems reviewed & are unremarkable except as noted in HPI and below Physical Exam Vital Signs: Last Vital Signs BP 122/60 01/14/25 11:41 BMI result Body Mass Index 30.5 Const General: comfortable and no acute distress Orientation/consciousness: patient oriented x3 HEENT Head: Yes normocephalic Mouth: Normal oral and palatal mucosa present Eyes EOM: EOMs intact bilaterally Neck Neck: Yes supple Resp Auscultation: clear to auscultation bilaterally Cardio Jugular venous distension: no JVD Rate: regular rate GI Palpation (GI): Soft to palpation Auscultation: normal bowel sounds General: Yes no CVA tenderness Back/Spine/Pelvis Back: no CVA tenderness Skin General skin exam: no rashes or lesions noted Neuro General: patient oriented x3 and moves all extremities Extrem General: Yes no pedal edema Results Reviewed Nephrology Results: Sodium 140 mmol/L (135-145) 02/17/25 Potassium 4.2 mmol/L (3.3-5.1) 02/17/25 Chloride 103 mmol/L (96-108) 02/17/25 Carbon Dioxide 29 mmol/L (22-29) 02/17/25 BUN 9 mg/dL (9-16) 02/17/25 Creatinine 0.79 mg/dL (0.5-1.4) 02/17/25 Calcium 9.5 mg/dL (8.4-10.2) 02/17/25 Urine Protein 30 (1+) mg/dL (Neg-Trace) H 01/02/23 Urine Creatinine 32.58 mg/dL 02/17/25 Protein/Creatinin Ratio 0.58 (<0.2) H 02/17/25 Assessment & Plan Assessment & Plan (1) Proteinuria: Code(s): R80.9 - Proteinuria, unspecified Category: Medical Qualifiers: Proteinuria type: other Qualified Code(s): R80.8 - Other proteinuria (2) Essential hypertension: Code(s): I10 - Essential (primary) hypertension Category: Medical Plan 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 His HbA1c is good. He is on ACEI . I have started him on Jardiance. I have ordered detailed work up as well . He does not need any renal biopsy now. I may increase his ACEI based on evolving data. Answered all questions. F/U given Orders: Orders Electrolytes 6 Weeks R80.9 - Proteinuria, unspecified Calcium 6 Weeks R80.9 - Proteinuria, unspecified Creatinine 6 Weeks R80.9 - Proteinuria, unspecified Immunofixation Pnl, Serum 6 Weeks R80.9 - Proteinuria, unspecified Immunofixation, Random Urine 6 Weeks R80.9 - Proteinuria, unspecified Phospholipase A2 Receptor Pnl 6 Weeks R80.9 - Proteinuria, unspecified Blood Urea Nitrogen 6 Weeks R80.9 - Proteinuria, unspecified Protein Creatinine Ratio, Ur 6 Weeks R80.9 - Proteinuria, unspecified Medications: New empagliflozin (Jardiance) 10 mg PO DAILY 30 tabs 3RF Coding Level of Care Code New Pt Level 4 (93959) Diagnoses Other proteinuria R80.8 Proteinuria type: other Essential hypertension I10
[2025-01-14 11:41] VITALS: BP 122/60; BMI 30.5
--- OUTSIDE RECORDS SUMMARY | 2025-01-14 12:23 | XMS_ITS | Clinical Summary ---
Author Organization [facility] Facility Address [address] [place] [address] Care Team Providers Care Ammonia Refrigeration Technician Name Role Phone Glory Castillo MD Primary Care Provider [phone] Allergies Active Allergy Reactions Criticality Noted Date [...] [place] Care Teams Ammonia Refrigeration Technician Relationship Specialty Start Date End Date Glory Castillo MD [address] [place], [place] PCP - General Internal Medicine 06/26/22
== END 2025-01-14 11:54 | disposition home or self-care (01) ==
PROVIDERS: PCP Internal Medicine; Referring Provider Internal Medicine; Visit Provider Internal Medicine Nephrology
DX: R80.8 Other proteinuria (principal); I10 Essential (primary) hypertension
CPT/HCPCS: 99204

== ENCOUNTER → 2025-01-14 11:14 | Outpatient (BNVA) | payer MEDICARE, MEDICAID, SELFPAY | PROVIDERS: PCP Internal Medicine; Referring Provider Internal Medicine; Visit Provider Internal Medicine Nephrology | DX: R80.9 Proteinuria, unspecified (principal) | CPT/HCPCS: 99202 ==

== ENCOUNTER 2025-02-17 07:47 | Outpatient (REF) | payer MEDICARE, MEDICAID, SELFPAY ==
[2025-02-17 08:55] LABS: Anion Gap 12 (12-20); Blood Urea Nitrogen 9 mg/dL (9-16); Calcium 9.5 mg/dL (8.4-10.2); Carbon Dioxide 29 mmol/L (22-29); Chloride 103 mmol/L (96-108); Estimated Glomerular Filt Rate > 60; Potassium 4.2 mmol/L (3.3-5.1); Sodium 140 mmol/L (135-145)
[2025-02-17 09:12] LABS: Creatinine Urine 32.58 mg/dL; Protein/Creatinine Ratio, Ur 0.58 (<0.2); Total Protein Urine Random 19 mg/dL (<12)
[2025-02-22 12:13] LABS: IgA 361 mg/dL (70-320); IgG 1600 mg/dL (600-1540); IgM 75 mg/dL (50-300)
[2025-02-24 18:29] LABS: Phospholipase A2 IgG ELISA <4 RU/mL; Phospholipase A2 IgG IFA NEGATIVE (NEGATIVE)
== END 2025-02-17 07:48 | disposition home or self-care (01) ==
LOC: HO.LAB 07:47
PROVIDERS: PCP Internal Medicine; Visit Provider Internal Medicine Nephrology
DX: R80.9 Proteinuria, unspecified (principal)
CPT/HCPCS: 80051; 82310; 82565; 82570; 82784; 83520; 84156; 84520; 86255; 86334; 86335

== ENCOUNTER 2025-02-25 10:04 | Outpatient (AMB) | payer MEDICARE, MEDICAID, SELFPAY ==
--- NOTE | 2025-02-25 09:28 | HO.NEPHOV ---
Vital Signs 02/25/25 10:24 Height 5 ft 6 in Weight 187 lb 4 oz BMI 30.2 BP 134/80 Blood Pressure Location Lt brachial Position Sitting Pulse 71 Pulse Source Pulse Oximeter Pulse Oximetry (%) 98 Oxygen Delivery Method Room Air Intake Visit Reasons: Proteinuria-Conf Sail Repair Person Required: Yes Sail Repair Person Language: Walnut Dehydrator Operator Services: Sail Repair Person Present Sail Repair Person Name: Americo [id number] Information Interpreted: clinical only Accompanied by: Self / Same As Patient Allergies penicillamine Allergy (Intermediate, Verified 02/25/25 10:24) tongue rash penicillin V Allergy (Intermediate, Verified 02/25/25 10:24) rash trazodone Allergy (Intermediate, Verified 02/25/25 10:24) palpitations cyclobenzaprine [From Flexeril] Adverse Reaction (Intermediate, Verified 02/25/25 10:24) Headache HPI Comments Details: Blake who is a 69-year-old male with hypertension as well as diabetes mellitus type 2 on long-term current use of insulin complicated by polyneuropathy . He has hypercholesterolemia. He has coronary artery disease. He has a history of cerebrovascular accident with no residual deficit diagnosed in 2007, without persistent weakness on either side. He reports regular tobacco use, smoking five cigarettes daily. He denies chest pain, significant shortness of breath, edema or urinary symptoms. His renal functions are normal. He has been having proteinuria but denies any systemic complaints. [facility] Medical History (Updated 02/25/25 @ 10:33 by Marc Alexander MD) HTN (hypertension) Obesity (BMI 30-39.9) Alcohol abuse Microalbuminuria due to type 2 diabetes mellitus Screening for prostate cancer Essential hypertension Hyperlipidemia LDL goal <70 Type 2 diabetes mellitus with diabetic polyneuropathy Vitamin D deficiency CVA (cerebral vascular accident) Diabetes Surgical History History of bilateral cataract extraction H/O colonoscopy Family History Family/Other No problems noted. Father Myocardial infarction CVD (cardiovascular disease) Mother Diabetes Sister Diabetes Social History Household Members: None Housing: Apartment Alcohol intake: current Alcohol intake frequency: a few times a week Alcohol type: beer and hard liquor Patient Tobacco Use Status: Current everyday Tobacco user Tobacco use type: Cigarette Cigarettes Per Day: 5 e-Cigarette/Vaping Use: Never Used Second Hand Smoke Exposure: No service: No Current occupational status: unemployed and disabled Cognitive needs: Yes Hearing needs: No Vision needs: No Review of Systems Const All systems reviewed & are unremarkable except as noted in HPI and below Physical Exam Vital Signs: Last Vital Signs Pulse 71 02/25/25 10:24 BP 134/80 02/25/25 10:24 Pulse Ox 98 02/25/25 10:24 Oxygen Delivery Method Room Air 02/25/25 10:24 BMI result Body Mass Index 30.2 Const General: comfortable and no acute distress Orientation/consciousness: patient oriented x3 HEENT Head: Yes normocephalic Mouth: Normal oral and palatal mucosa present Eyes EOM: EOMs intact bilaterally Neck Neck: Yes supple Resp Auscultation: clear to auscultation bilaterally Cardio Jugular venous distension: no JVD Rate: regular rate GI Palpation (GI): Soft to palpation Auscultation: normal bowel sounds General: Yes no CVA tenderness Back/Spine/Pelvis Back: no CVA tenderness Skin General skin exam: no rashes or lesions noted Neuro General: patient oriented x3 and moves all extremities Extrem General: Yes no pedal edema Results Reviewed Nephrology Results: Sodium 140 mmol/L (135-145) 02/17/25 Potassium 4.2 mmol/L (3.3-5.1) 02/17/25 Chloride 103 mmol/L (96-108) 02/17/25 Carbon Dioxide 29 mmol/L (22-29) 02/17/25 BUN 9 mg/dL (9-16) 02/17/25 Creatinine 0.79 mg/dL (0.5-1.4) 02/17/25 Calcium 9.5 mg/dL (8.4-10.2) 02/17/25 Urine Protein 30 (1+) mg/dL (Neg-Trace) H 01/02/23 Urine Creatinine 32.58 mg/dL 02/17/25 Protein/Creatinin Ratio 0.58 (<0.2) H 02/17/25 Assessment & Plan Assessment & Plan (1) Proteinuria: Code(s): R80.9 - Proteinuria, unspecified Category: Medical Qualifiers: Proteinuria type: other Qualified Code(s): R80.8 - Other proteinuria (2) HTN (hypertension): Code(s): I10 - Essential (primary) hypertension Category: Medical Qualifiers: Hypertension type: primary hypertension Qualified Code(s): I10 - Essential (primary) hypertension Plan 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 His HbA1c is good. He is on ACEI as well as Jardiance. ( list is not showing ACEI- shall call pharmacy). I have increased his lisinopril to 10 mg bid . He does not need any renal biopsy now. I may increase his ACEI based on evolving data. Answered all questions. F/U given Orders: Orders Electrolytes 1 Month I10 - Essential (primary) hypertension, R80.8 - Other proteinuria Protein Creatinine Ratio, Ur 1 Month I10 - Essential (primary) hypertension, R80.8 - Other proteinuria Creatinine 1 Month I10 - Essential (primary) hypertension, R80.8 - Other proteinuria Blood Urea Nitrogen 1 Month I10 - Essential (primary) hypertension, R80.8 - Other proteinuria Medications: New lisinopril 10 mg PO BID 60 tabs 6RF Coding Level of Care Code Est Pt Level 4 (30761) Diagnoses Other proteinuria R80.8 Proteinuria type: other Primary hypertension I10 Hypertension type: primary hypertension
[2025-02-25 10:24] VITALS: BP 134/80; PULSE 71; O2SAT 98; BMI 30.2
--- OUTSIDE RECORDS SUMMARY | 2025-02-25 11:26 | XMS_ITS | Encounter Summary ---
Author Organization [facility] Address [address] [place] [address] Care Team Providers Care Grounds/Maintenance Specialist Name Role Phone Fay Webb MD Primary Care Provider [phone] Encounter Details Date Type Department Care Team Description 04/12/2017 Hospital Medical Records [address] [place] [address] Torie Hanson Social History Tobacco Use Types Packs/Day Years Used Date Smoking Tobacco: Some Days Cigarettes 0.5 Smokeless Tobacco: Never Comments:started @ age 16 Alcohol Use Standard Drinks/Week Comments Yes 0 (1 standard drink = 0.6 oz pur e alcohol) Sex Assigned at Date Recorded Not on file documented as of this encounter Plan of Treatment Not on file documented as of this encounter Visit Diagnoses Not on filedocumented in this encounter Care Teams Grounds/Maintenance Specialist Relationship Specialty Start Date End Date Fay Webb MD [address] [place] [address] PCP - General Internal Medicine 09/14/15 documented as of this encounter
--- OUTSIDE RECORDS SUMMARY | 2025-02-25 11:26 | XMS_ITS | Encounter Summary ---
Author Organization [facility] Address [address] [place] [address] Care Team Providers Care Tamale Maker Name Role Phone Fay Webb MD Primary Care Provider [phone] Encounter Details Date Type Department Care Team Description 05/15/2017 Communicable Disease Specialist Report Medical Records [address] [place] [address] Abstract, Provider Social History Tobacco Use Types Packs/Day Years [...] on filedocumented in this encounter Care Teams Tamale Maker Relationship Specialty Start Date End Date Fay Webb MD [address] [place] [address] PCP - General Internal Medicine 09/14/15 documented as of this encounter
--- OUTSIDE RECORDS SUMMARY | 2025-02-25 11:26 | XMS_ITS | Clinical Summary ---
Author Organization [facility] Address [address] [place] [address] Care Team Providers Care Christian Education Director Name Role Phone Glory Castillo MD Primary Care Provider [phone] Allergies Active Allergy Reactions Criticality Noted Date [...] Diabetes: Visual Foot Exam 06/26/2022 Influenza Vaccine (Season Ended) 2025 12/02/2016, 08/24/2014 Hepatitis B Vaccine Aged Out No longe r eligible based on patient's age to complete this topic Insurance [place]ICARE [place]ID [place] Care Teams Christian Education Director Relationship Specialty Start Date End Date Glory Castillo MD [address] [place] PCP - General Internal Medicine 06/26/22
--- OUTSIDE RECORDS SUMMARY | 2025-02-25 11:26 | XMS_ITS | Encounter Summary ---
Author Organization [facility] Address [address] [place] [address] Care Team Providers Care Child Therapist Name Role Phone Fay Webb MD Primary Care Provider [phone] Encounter Details Date Type Department Care Team Description 12/15/2015 Release of Information Medical Records [address] [place] [address] Abstract, Provider Social History Tobacco Use Types Packs/Day Years Used Date Smoking Tobacco: Every Day Cigarettes 0.3 Smokeless Tobacco: Never Comments:started @ age 16 Alcohol Use Standard Drinks/Week Comments Yes 0 (1 standard drink = 0.6 oz pur e alcohol) Sex Assigned at Date Recorded Not on file documented as of this encounter Plan of Treatment Not on file documented as of this encounter Visit Diagnoses Not on filedocumented in this encounter Care Teams Child Therapist Relationship Specialty Start Date End Date Fay Webb MD [address] [place] [address] PCP - General Internal Medicine 09/14/15 documented as of this encounter
--- OUTSIDE RECORDS SUMMARY | 2025-02-25 11:26 | XMS_ITS | Encounter Summary ---
Author Organization [facility] Address [address] [place] [address] Care Team Providers Care User Experience Architect Name Role Phone Fay Webb MD Primary Care Provider [phone] Encounter Details Date Type Department Care Team Description 07/01/2016 Release of Information Medical Records [address] [place] [id number] Abstract, Provider Social History Tobacco Use Types [...] on filedocumented in this encounter Care Teams User Experience Architect Relationship Specialty Start Date End Date Fay Webb MD [address] [place] [address] PCP - General Internal Medicine 09/14/15 documented as of this encounter
--- OUTSIDE RECORDS SUMMARY | 2025-02-25 11:26 | XMS_ITS | Encounter Summary ---
Author Organization [facility] Address [address] [place] [address] Care Team Providers Care Mobile Sales Technician Name Role Phone Fay Webb MD Primary Care Provider [phone] Encounter Details Date Type Department Care Team Description 04/12/2017 Hospital Medical Records [address] [place] [id number] Idris Stone MD Social History Tobacco Use Types Packs/Day Years [...] on filedocumented in this encounter Care Teams Mobile Sales Technician Relationship Specialty Start Date End Date Fay Webb MD [address] [place] [address] PCP - General Internal Medicine 09/14/15 documented as of this encounter
--- OUTSIDE RECORDS SUMMARY | 2025-02-25 11:26 | XMS_ITS | Encounter Summary ---
Author Organization [facility] Address [address] [place] [address] Care Team Providers Care Power Plant Operations Manager Name Role Phone Fay Webb MD Primary Care Provider [phone] Encounter Details Date Type Department Care Team Description 10/23/2016 Release of Information Medical Records [address] [place] [id number] Abstract, Provider Social History Tobacco Use Types [...] on filedocumented in this encounter Care Teams Power Plant Operations Manager Relationship Specialty Start Date End Date Fay Webb MD [address] [place] [address] PCP - General Internal Medicine 09/14/15 documented as of this encounter
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
== END 2025-02-25 10:42 | disposition home or self-care (01) ==
LOC: HO.HKA 10:04
PROVIDERS: PCP Internal Medicine; Visit Provider Internal Medicine Nephrology
DX: R80.8 Other proteinuria (principal); I10 Essential (primary) hypertension
CPT/HCPCS: 99214

== ENCOUNTER → 2025-02-25 10:04 | Outpatient (BNVA) | payer MEDICARE, MEDICAID, SELFPAY | PROVIDERS: PCP Internal Medicine; Visit Provider Internal Medicine Nephrology | DX: R80.8 Other proteinuria (principal); I10 Essential (primary) hypertension | CPT/HCPCS: 99212 ==

== ENCOUNTER 2025-07-19 14:05 | Outpatient (AMB) | payer MEDICARE, MEDICAID, SELFPAY ==
[2025-07-19 14:15] VITALS: BP 122/68; PULSE 77; RESP 18; TEMP 36.3; O2SAT 96; BMI 28.9
--- NOTE | 2025-07-19 14:15 | MHC.PC.OV ---
Vital Signs 07/19/25 14:15 Height 5 ft 6 in Weight 179 lb BMI 28.9 BP 122/68 Blood Pressure Location Lt brachial Position Sitting Respiration 18 Pulse 77 Pulse Source Pulse Oximeter Temp 97.3 F Temp Source Temporal Artery Scan Pulse Oximetry (%) 96 Oxygen Delivery Method Room Air Intake Visit Reasons: Cataracts left eye 08/01 right eye 08/16 School Photograph Editor Required: Yes School Photograph Editor Language: Sas Developer Analyst Name: [id number] Accompanied by: Allergies penicillamine Allergy (Intermediate, Verified 07/19/25 14:42) tongue rash penicillin V Allergy (Intermediate, Verified 07/19/25 14:42) rash trazodone Allergy (Intermediate, Verified 07/19/25 14:42) palpitations cyclobenzaprine (From Flexeril) Adverse Reaction (Intermediate, Verified 07/19/25 14:42) Headache Medication List - Last Reconciled 07/19/25 by LUCIO Tracy amlodipine 10 mg PO DAILY 90 days aspirin 81 mg PO DAILY 90 days carvedilol (Coreg) 25 mg PO BID 90 days clopidogrel 75 mg PO DAILY empagliflozin (Jardiance) 10 mg PO DAILY ezetimibe 10 mg PO DAILY 90 days insulin degludec (Tresiba FlexTouch U-100 insulin) 10 units (0.1 mL) subcut DAILY 90 days insulin glargine (Basaglar KwikPen U-100 Insulin) 10 units (0.1 mL) subcut DAILY 90 days lisinopril 10 mg PO BID metformin 500 mg PO BID pen needle, diabetic (BD Ultra-Fine Bernie Pen Needle) As directed once daily pregabalin 75 mg PO BID 30 days Tobacco use date assessed: 07/19/25 Fall risk assessment: No Falls in past year Last assessed Fall Risk: 07/19/25 Dental Screening Dental Screen Date: 07/19/25 Did you have a dental visit in the last 12 months?: No Did you have a dental problem in the last 6 months where you did not have access to dental care?: No Was dental information given to patient?: No HPI Cataracts left eye 08/01 right eye 08/16 HPI Details The patient is a 69-year-old male presenting for preoperative clearance for cataract surgery. Patient of Dr. Razo, last seen in office on December 06, 2024 The patient has a history of cataract surgery on both eyes, with the upcoming procedures scheduled for the left eye on August 01 and the right eye on August 16. He reports previous surgeries on both eyes, with the right eye having been operated on in [place] and currently experiencing discomfort when exposed to sunlight or when straining to open the left eye. Reports that he is not able to see out of the right at all. The patient has a history of diabetes mellitus, managed with insulin therapy. He administers 10 units of insulin daily at 10:30 AM. For the surgery, it is recommended to take half the usual dose of insulin to prevent hypoglycemia due to fasting. The patient also has a history of hypertension, for which he takes medication. He does not monitor his blood pressure at home but relies on clinic visits for checks. Explained to the patient that he could take his blood pressure medications with sips of water. The patient is on Jardiance 10 mg daily was instructed to hold this medication 3 days before his surgery. Per patient, he has not taken this medication. Encouraged the patient to hold the dose of metformin the night before the procedure due to his NPO status. The patient is on aspirin 81 mg daily and clopidogrel 75 mg daily. Patient to continue these medications as prescribed, take with sips of water. Surgeon/location: Adan Lopez at [facility] Anesthesia: Mac. The patient reports previous eye surgeries using similar anesthesia regimen without any issues. The patient isn't on any blood thinner. The patient is on aspirin and Plavix and was encouraged to continue these medications. The patient denies any post surgery hypothermia or clotting disorder. Denies chest pain, shortness of breath, heart palpitation or dizziness Medical history is significant for diabetes mellitus, HTN, cataract OU and history of pterygium resection OS, HLD [facility] Medical History (Updated 07/21/25 @ 21:08 by LUCIO Tracy) HTN (hypertension) Obesity (BMI 30-39.9) Alcohol abuse Microalbuminuria due to type 2 diabetes mellitus Screening for prostate cancer Essential hypertension Hyperlipidemia LDL goal <70 Type 2 diabetes mellitus with diabetic polyneuropathy Vitamin D deficiency CVA (cerebral vascular accident) Diabetes Surgical History History of bilateral cataract extraction H/O colonoscopy Family History Family/Other No problems noted. Father Myocardial infarction CVD (cardiovascular disease) Mother Diabetes Sister Diabetes Social History Household Members: None Housing: Apartment Alcohol intake: current Alcohol intake frequency: a few times a week Alcohol type: beer and hard liquor Patient Tobacco Use Status: Current everyday Tobacco user Tobacco use type: Cigarette Cigarettes Per Day: 5 e-Cigarette/Vaping Use: Never Used Second Hand Smoke Exposure: No service: No Current occupational status: unemployed and disabled Cognitive needs: Yes Hearing needs: No Vision needs: No Questionnaire Thrive Questionnaire Date Thrive assessed: 12/06/24 PANFILO-7 AMB Questionnaire PANFILO-7 Date PANFILO - 7 assessed: 12/06/24 Source: Developed by Drs. Idris Orellana, Tova Santiago, Andrey Mir and colleagues, with an educational royer from [employer]. Review of Systems Const Denies headache(s) Eyes Reports blurry vision (Left eye), Reports loss of vision (Right eye) and Reports eye pain (Left eye) ENT Denies vertigo, Denies dizziness, Denies headache(s) and Denies sore throat Card Denies chest pain, Denies leg edema and Denies lightheadedness Resp Denies cough, Denies hemoptysis and Denies wheezing GI Denies abdominal pain, Denies melena, Denies constipation, Denies diarrhea and Denies vomiting Denies dysuria, Denies urinary frequency and Denies urinary urgency Musc Denies arthralgias, Denies joint swelling, Denies numbness and Denies tingling Neuro Denies Abnormal speech present, Denies behavioral changes, Denies vertigo, Denies dizziness, Denies headache(s), Reports loss of vision (Right eye), Denies memory loss, Denies numbness and Denies tingling Psych Denies anxiety, Denies behavioral changes, Denies depression, Denies memory loss and Denies panic attacks Yifan/Lymph Denies easy bleeding and Denies easy bruising Aller/Immun Denies wheezing Physical exam (Primary Care) Vital Signs: Last Vital Signs Temp 97.3 F 07/19/25 14:15 Pulse 77 07/19/25 14:15 Resp 18 07/19/25 14:15 BP 122/68 07/19/25 14:15 Pulse Ox 96 07/19/25 14:15 Oxygen Delivery Method Room Air 07/19/25 14:15 BMI result Body Mass Index 28.9 Tobacco/Smoking Status: Tobacco use Status Tobacco use date assessed 07/19/25 07/19/25 14:22 Patient Tobacco Use Status Current everyday Tobacco 07/19/25 14:22 Tobacco use type Cigarette 07/19/25 14:22 e-Cigarette/Vaping Use Never Used 07/19/25 14:22 Thrive Assessment: Date of Thrive Assessment Date Thrive assessed 12/06/24 07/19/25 14:22 Const General: healthy appearing, no acute distress, alert and awake Nutritional Appearance: well nourished Orientation/consciousness: oriented to person, oriented to place and oriented to time HENMT Ears: TM's normal bilaterally General nose exam: Normal nasal mucous membranes and turbinates present Eyes Conjunctivae: conjunctivae normal Sclerae: sclerae normal Pupils: Equal, round and reactive pupils present Neck Neck: Yes no lymphadenopathy and Yes no JVD Thyroid: Thyroid normal Carotids: no bruits Resp Effort & Inspection: normal respiratory effort and not tachypneic Auscultation: no crackles, no rales, no rhonchi and no wheezes Cardio Rate: regular rate Rhythm: regular rhythm Heart sounds: no murmurs and normal S1 and S2 GI Palpation (GI): Soft to palpation, nontender, no hepatomegaly and no splenomegaly Auscultation: normal bowel sounds Skin General skin exam: no rashes or lesions noted and dry skin Neuro General: oriented to person, oriented to place and oriented to time Cranial nerves: Yes Equal, round and reactive pupils present Speech: No Abnormal speech present Gait exam (Neuro): Normal gait present Motor exam (neuro): no tremor noted Extrem Right upper extremity: full ROM Left upper extremity: full ROM Right lower extremity: full ROM; no edema Left lower extremity: full ROM; no edema Psych Mental Status: mental status grossly normal Speech and movement: Normal speech and movement present Affect: normal affect Attitude: cooperative Thought process: Normal thought process present Results Reviewed Results Reviewed: Laboratory Tests 07/21/25 07/21/25 11:31 11:38 WBC 7.4 RBC 4.59 L Hgb 14.2 Hct 41.5 L MCV 90.4 MCH 30.9 MCHC 34.2 RDW 13.2 Plt Count 224 Sodium 140 Potassium 3.7 Chloride 103 Carbon Dioxide 31 H Anion Gap 10 L BUN 11 Creatinine 0.80 Estim Creat Clear Calc Not Reportable Estimated GFR > 60 Random Glucose 64 Estimat Average Glucose 134 Hemoglobin A1c % 6.3 H Calcium 9.1 Total Bilirubin 0.7 AST 21 ALT 15 Alkaline Phosphatase 89 Total Protein 7.2 Albumin 4.1 TSH 1.06 Urine Color Yellow Urine Appearance Clear Urine pH 6.0 Ur Specific [place] 1.025 Urine Protein Trace Urine Glucose (UA) >=1000 H Urine Ketones Trace Urine Blood Negative Urine Nitrite Negative Ur Leukocyte Esterase Negative Urine RBC 0-2 Urine WBC 0-5 Ur Squamous Epith Cells 0-2 Urine Bacteria None Seen Hyaline Casts 3-5 [place] [id number] Electrocardiograph Report Draft Patient: Blake Noriega MR#: [id number] : 1955 Acct:[id number] Age/Sex: 69 / M ADM Date: 07/21/25 Loc: HO.LAB Attending Dr: Cody VALDES Ordering Physician: Cody Olson Date of Service: 07/21/25 Procedure(s): ECG 12 lead EKG Accession Number(s): [id number] cc: ~ Test Reason : pre op Blood Pressure : */* mmHG Vent. Rate : 62 BPM Atrial Rate : 62 BPM P-R Int : 182 ms QRS Dur : 84 ms QT Int : 408 ms P-R-T Axes : 56 25 26 degrees QTcB Int : 414 ms Normal sinus rhythm Normal ECG When compared with ECG of 14-Apr-2017 08:06, No significant change was found Referred By: Cody Olson Electronically Signed By: Dictated By: Signed By: DD/ 1119 TD/TT: 07/21/25 1218 Dry Pan Feeder: Coding Level of Care Code Est Pt Level 4 (20897) Diagnoses Preoperative clearance Z01.818 Essential hypertension I10 Type 2 diabetes mellitus with diabetic polyneuropathy, with long-term current use of insulin E11.42; Z79.4 Diabetes mellitus detention insulin use: with terminal supervisor use Obesity (BMI 30-39.9) E66.9 Cataract of both eyes, unspecified cataract type H26.9 Cataract type: unspecified Other proteinuria R80.8 Proteinuria type: other Smoker F17.200 Cerebrovascular accident (CVA), unspecified mechanism I63.9 CVA mechanism: unspecified Time Spent (min) 41 Assessment & Plan Assessment & Plan (1) Preoperative clearance: Code(s): Z01.818 - Encounter for other preprocedural examination Category: Medical Plan: Regarding preop clearance, the patient is at acceptable risk for proposed surgery. Reviewed with the patient that no surgery is completely free of risk and that this examination is to assist the surgeon in reviewing informed consent. (2) Essential hypertension: Code(s): I10 - Essential (primary) hypertension Category: Medical Plan: The patient blood pressure is 122/68 within goal Reinforced low-salt diet Continue amlodipine 10 mg daily, carvedilol 25 mg b.i.d., lisinopril 10 mg b.i.d. (3) Type 2 diabetes mellitus with diabetic polyneuropathy: Code(s): E11.42 - Type 2 diabetes mellitus with diabetic polyneuropathy Category: Medical Qualifiers: Diabetes mellitus terminal supervisor insulin use: with terminal supervisor use Qualified Code(s): E11.42 - Type 2 diabetes mellitus with diabetic polyneuropathy; Z79.4 - terminal press operator (current) use of insulin Plan: A1c 6.3% within goal Reinforced low sugar/carbohydrate diet Continue Jardiance 10 mg daily (hold 3 days before surgery, reports that he has not taken this medication), long-acting insulin 10 units daily (take half= 5 units on day of surgery), metformin 500 mg b.i.d.(hold evening dose the night before surgery due to NPO status). (4) Obesity (BMI 30-39.9): Code(s): E66.9 - Obesity, unspecified Category: Medical Plan: Encouraged to exercise for at least 30 minutes a day/5 days a week Healthy eating discussed. Encouraged to eat fruits/vegetables, protein-fish/baked chicken, and to avoid salty/fried foods, sweets, caffeine and carbohydrates. Encouraged to increase water intake 6-8 glasses a day (5) Cataracts, bilateral: Code(s): H26.9 - Unspecified cataract Category: Medical Qualifiers: Cataract type: unspecified Qualified Code(s): H26.9 - Unspecified cataract Plan: The patient is scheduled for cataract surgery on the left eye on August 01 and the right eye on August 16. Preoperative clearance includes ensuring blood work and an EKG are completed prior to surgery. (6) Proteinuria: Code(s): R80.9 - Proteinuria, unspecified Category: Medical Qualifiers: Proteinuria type: other Qualified Code(s): R80.8 - Other proteinuria Plan: Continue adequate hydration and lisinopril 10 mg b.i.d Follow up with Nephrology as scheduled (7) Smoker: Code(s): F17.200 - Nicotine dependence, unspecified, uncomplicated Category: Social Hx Plan: Reports smoking about 5 cigarettes a day. Encouraged smoking cessation. (8) CVA (cerebral vascular accident): Comment: 2007 Code(s): I63.9 - Cerebral infarction, unspecified Category: Medical Qualifiers: CVA mechanism: unspecified Qualified Code(s): I63.9 - Cerebral infarction, unspecified Plan: History of stroke with no residual deficit diagnosed in 2007 without persistent weakness on either side. Reports tobacco use, smoking 5 cigarettes daily. Smoking cessation encouraged. Continue on clopidogrel 75 mg daily, ezetimibe 10 mg daily Orders: Orders Comprehensive Met. Panel Today E78.5 - Hyperlipidemia, unspecified, F10.10 - Alcohol abuse, uncomplicated, I10 - Essential (primary) hypertension, Z01.818 - Encounter for other preprocedural examination UA CC w/rflx Micro + Cult Today E78.5 - Hyperlipidemia, unspecified, F10.10 - Alcohol abuse, uncomplicated, I10 - Essential (primary) hypertension, Z01.818 - Encounter for other preprocedural examination TSH reflex Free T4 Today E78.5 - Hyperlipidemia, unspecified, F10.10 - Alcohol abuse, uncomplicated, I10 - Essential (primary) hypertension, Z01.818 - Encounter for other preprocedural examination Complete Blood Count Auto Diff Today E78.5 - Hyperlipidemia, unspecified, F10.10 - Alcohol abuse, uncomplicated, I10 - Essential (primary) hypertension, Z01.818 - Encounter for other preprocedural examination Hemoglobin A1c Today E78.5 - Hyperlipidemia, unspecified, F10.10 - Alcohol abuse, uncomplicated, I10 - Essential (primary) hypertension, Z01.818 - Encounter for other preprocedural examination ECG 12 lead EKG Today Z01.818 - Encounter for other preprocedural examination
--- OUTSIDE RECORDS SUMMARY | 2025-07-19 15:03 | XMS_ITS | Clinical Summary ---
Author Organization [facility] Facility Address [address] [place] [address], [place] [address] Care Team Providers Care Hospital Orderly Name Role Phone Glory Castillo MD Primary Care Provider [phone] Allergies Active Allergy Reactions Criticality Noted Date [...] [place] Care Teams Hospital Orderly Relationship Specialty Start Date End Date Glory Castillo MD [address] [place], [place] PCP - General Internal Medicine 06/26/22
== END 2025-07-19 15:31 | disposition home or self-care (01) ==
LOC: HO.HMCH 14:05
PROVIDERS: PCP Internal Medicine
DX: E11.42 Type 2 diabetes mellitus with diabetic polyneuropathy (principal); Z79.4 Long term (current) use of insulin; I63.9 Cerebral infarction, unspecified; Z01.818 Encounter for other preprocedural examination; E66.9 Obesity, unspecified; Z68.28 Body mass index [BMI] 28.0-28.9, adult; I10 Essential (primary) hypertension; H26.9 Unspecified cataract; R80.8 Other proteinuria; F17.200 Nicotine dependence, unspecified, uncomplicated

== ENCOUNTER → 2025-07-19 14:05 | Outpatient (BNVA) | payer MEDICARE, MEDICAID, SELFPAY | PROVIDERS: PCP Internal Medicine | DX: Z01.818 Encounter for other preprocedural examination (principal); I10 Essential (primary) hypertension; E11.42 Type 2 diabetes mellitus with diabetic polyneuropathy; Z79.4 Long term (current) use of insulin; E66.9 Obesity, unspecified; H26.9 Unspecified cataract; R80.8 Other proteinuria; F17.200 Nicotine dependence, unspecified, uncomplicated; Z86.73 Personal history of transient ischemic attack (TIA), and cerebral infarction without residual deficits; Z71.6 Tobacco abuse counseling | CPT/HCPCS: 99212 ==

== ENCOUNTER 2025-07-21 11:03 | Outpatient (REF) | payer MEDICARE, MEDICAID, SELFPAY ==
--- NOTE | 2025-07-21 11:13 | ECG_ITS ---
Test Reason : pre op Blood Pressure : */* mmHG Vent. Rate : 62 BPM Atrial Rate : 62 BPM P-R Int : 182 ms QRS Dur : 84 ms QT Int : 408 ms P-R-T Axes : 56 25 26 degrees QTcB Int : 414 ms Normal sinus rhythm Normal ECG When compared with ECG of 14-Apr-2017 08:06, No significant change was found Referred By: Cody Olson Electronically Signed By: MASON LYNCH
[2025-07-21 11:33] LABS: MANUAL DIFF FLAG NO
[2025-07-21 11:53] LABS: Hematocrit 41.5 % (42.0-52.0); Hemoglobin 14.2 g/dl (14.0-18.0); Imm Gran Abs Auto 0.01 X10*3/uL (0.00-0.03); Imm Gran Pct Auto 0.1 % (0.0-0.4); Lymphocytes Absolute Auto 2.4 X10*3/uL (1.2-4.9); Mean Corpuscular HGB Conc 34.2 g/dl (31.0-36.0); Mean Corpuscular Hemoglobin 30.9 pg (27.0-33.0); Mean Corpuscular Volume 90.4 fL (80.0-98.0); NRBC Abs Auto 0.000 X10*3/uL (0.0-0.012); NRBC Pct Auto 0.0 /100WBC (0.0-0.2); Platelet Count 224 X10*3/uL (160-400); Red Blood Count 4.59 X10*6/uL (4.60-5.80); White Blood Count 7.4 X10*3/uL (4.8-10.8)
[2025-07-21 12:16] LABS: Appearance Urine Clear; Glucose Urine UA >=1000 mg/dL (Negative); PH 6.0 (5.0-9.0); Specific Gravity - Urine 1.025 (1.005-1.025); UMIC TRIGGER UACC YES
--- OUTSIDE RECORDS SUMMARY | 2025-07-21 12:25 | XMS_ITS | Clinical Summary ---
Author Organization [facility] Facility Address [address] [place] [address], [place] [address] Care Team Providers Care Assistant City Attorney Name Role Phone Glory Castillo MD Primary Care Provider [phone] Allergies Active Allergy Reactions Criticality Noted Date [...] Medicaid [place] Medicare [place] Care Teams Assistant City Attorney Relationship Specialty Start Date End Date Glory Castillo MD [address] [place], [place] PCP - General Internal Medicine 06/26/22
[2025-07-21 12:37] LABS: Hemoglobin A1C 201.8930 umol/L; Total Hemoglobin (HGBA1C) 4497.0285 umol/L
[2025-07-21 12:50] LABS: Alanine Aminotransferase 15 U/L (0-40); Albumin Level 4.1 g/dL (3.5-5.0); Alkaline Phosphatase 89 U/L (39-117); Anion Gap 10 (12-20); Aspartate Amino Transferase 21 U/L (5-37); Blood Urea Nitrogen 11 mg/dL (9-16); Calcium 9.1 mg/dL (8.4-10.2); Carbon Dioxide 31 mmol/L (22-29); Chloride 103 mmol/L (96-108); Estimated Glomerular Filt Rate > 60; Potassium 3.7 mmol/L (3.3-5.1); Sodium 140 mmol/L (135-145); Total Protein 7.2 g/dL (6.5-8.0)
== END 2025-07-21 11:04 | disposition home or self-care (01) ==
LOC: HO.LAB 11:03
PROVIDERS: PCP Internal Medicine
DX: Z01.810 Encounter for preprocedural cardiovascular examination (principal); F10.10 Alcohol abuse, uncomplicated; I10 Essential (primary) hypertension; E78.5 Hyperlipidemia, unspecified; Z13.1 Encounter for screening for diabetes mellitus
CPT/HCPCS: 36415; 80053; 81001; 81003; 83036; 84443; 85025; 93005

== ENCOUNTER → 2025-07-21 11:13 | Outpatient (BNV) | payer MEDICARE, MEDICAID, SELFPAY | PROVIDERS: PCP Internal Medicine; Visit Provider Internal Medicine | DX: Z01.810 Encounter for preprocedural cardiovascular examination (principal) | CPT/HCPCS: 93010 ==

== ENCOUNTER → 2025-08-01 12:31 | Day surgery (SDC) | payer MEDICARE, MEDICAID, SELFPAY ==
--- OUTSIDE RECORDS SUMMARY | 2025-06-20 09:05 | XMS_ITS | Clinical Summary ---
Author Organization [facility] Facility Address [address] [place] [address], [place] [address] Care Team Providers Care Staking Technician Name Role Phone Glory Castillo MD Primary Care Provider [phone] Allergies Active Allergy Reactions Criticality Noted Date [...] 08/10/2014 History of cerebrovascular disease 08/10/2014 Immunizations Immunization Administration Dates Next Due Influenza, Unspecified 12/02/2016,08/24/2014 [...] Due Date Last Done Comments Pneumococcal Vaccine: 50+ Years (1 of 2 - PCV) 1973 Colorectal Cancer Screening: Annual FOBT 2003 Colorectal Cancer Screening: Colonoscopy 2003 Colorectal Cancer Screening: Sigmoidoscopy 2003 Diabetes: Hemoglobin A1C 06/26/2022 Diabetes: Ophthalmology Exam 06/26/2022 Diabetes: Pedal Pulse Checked 06/26/2022 Diabetes: Sensory Foot Exam 06/26/2022 Diabetes: Visual Foot Exam 06/26/2022 Influenza Vaccine (#1) 2025 7, 08/24/2014 Hepatitis B Vaccine Aged Out No longe r eligible based on patient's age to complete this topic Insurance Medicare Medicaid [place] Medicare Medicaid [place] Care Teams Staking Technician Relationship Specialty Start Date End Date Glory Castillo MD [address] [place], [place] PCP - General Internal Medicine 06/26/22
[2025-07-26 15:23] VITALS: BMI 28.9
--- NOTE | 2025-07-28 14:18 | HO.ANESPROP2 ---
HPI - Anesthesia Eval Consult details Narrative: 69yo M for Left Cataract Extraction IOL Insertion No previous cataract on record Plavix/asa for hx CVA Anesthesia Pre-Procedure Meds Is the patient on any of the following meds?: SGLT2 Inhib PMFSH Active Problems Active Problems: All Active Problems Cataracts, bilateral (Acute) Preoperative clearance (Acute) Proteinuria (Acute) Microalbuminuria (Acute) Smoker (Acute) Encounter for Medicare annual wellness exam (Acute) Blurry vision (Acute) Screening for colon cancer (Acute) Adult general medical exam (Acute) Colonoscopy refused (Acute) CVA (cerebral vascular accident) (Acute) HTN (hypertension) (Acute) Obesity (BMI 30-39.9) (Acute) Alcohol abuse (Acute) Screening for prostate cancer (Acute) Type 2 diabetes mellitus with diabetic polyneuropathy (Acute) Essential hypertension (Acute) Hyperlipidemia LDL goal <70 (Acute) Past Medical History Medical History (Updated 07/26/25 @ 15:10 by Amanda Bourne RN) HTN (hypertension) Obesity (BMI 30-39.9) Alcohol abuse 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 Father Myocardial infarction CVD (cardiovascular disease) Mother Diabetes Sister Diabetes Surgical History Surgical History (Updated 07/26/25 @ 15:10 by Amanda Bourne RN) Hx of eye surgery History of excision of pterygium H/O colonoscopy Social History Social History Household Members: None Housing: Apartment Alcohol intake: current Alcohol intake frequency: a few times a week Alcohol type: beer and hard liquor Patient Tobacco Use Status: Current everyday Tobacco user Tobacco use type: Cigarette Cigarettes Per Day: 5 e-Cigarette/Vaping Use: Never Used Second Hand Smoke Exposure: No service: No Current occupational status: unemployed and disabled Cognitive needs: Yes Hearing needs: No Vision needs: No Meds Allergies Allergy/AdvReac Type Severity Reaction Status Date / Time Penicillins Allergy Intermediate Rash Verified 07/26/25 15:11 trazodone Allergy Intermediate palpitation Verified 07/19/25 14:42 s cyclobenzaprine (From AdvReac Intermediate Headache Verified 07/19/25 14:42 Flexeril) Home Medications ?Medication ?Instructions ?Recorded ?Confirmed ?Last Taken ?Type clopidogrel 75 mg tablet 75 mg PO DAILY 01/14/25 07/26/25 Unknown History Exam Height,Weight and Vital Signs: Height 5 ft 6 in Weight 81.193 kg Assessment and Plan Assessment Anesthesia Assessment: Chart Reviewed
[2025-08-01 12:59] LABS: Glucose, Whole Blood 122 mg/dL (60-115)
--- NOTE | 2025-08-01 13:13 | PC.NURSE ---
spoke to patient with final cigar and box examiner. patient took his jardiance yesterday. wants to reschedule. offered to be done under local and wants to reschedule. spoke to patient and regarding to hold the medication for three days prior to his reschedule. med list given. aware of plan.
== END ==
LOC: HO.SSS 12:31
PROVIDERS: PCP Internal Medicine; Visit Provider Ophthalmology
DX: H25.12 Age-related nuclear cataract, left eye (principal); Z53.09 Procedure and treatment not carried out because of other contraindication; Z79.84 Long term (current) use of oral hypoglycemic drugs; E11.9 Type 2 diabetes mellitus without complications
CPT/HCPCS: 82947; J3301

== ENCOUNTER 2025-08-15 06:12 | Day surgery (SDC) | payer MEDICARE, MEDICAID, SELFPAY ==
[2025-07-26 15:26] VITALS: BMI 28.9
--- NOTE | 2025-08-11 09:27 | HO.ANESPROP2 ---
Documented by User: Lisa Tatum NP 08/11/25 09:29 HPI - Anesthesia Eval Consult details Narrative: 69yo M for Right Cataract Extraction IOL Insertion No previous cataract on record Plavix/Asa for hx cva ETOH abuse Anesthesia Pre-Procedure Meds Is the patient on any of the following meds?: SGLT2 Inhib PMFSH Active Problems Active Problems: All Active Problems Cataracts, bilateral (Acute) Preoperative clearance (Acute) Proteinuria (Acute) Microalbuminuria (Acute) Smoker (Acute) Encounter for Medicare annual wellness exam (Acute) Blurry vision (Acute) Screening for colon cancer (Acute) Adult general medical exam (Acute) Colonoscopy refused (Acute) CVA (cerebral vascular accident) (Acute) HTN (hypertension) (Acute) Obesity (BMI 30-39.9) (Acute) Alcohol abuse (Acute) Screening for prostate cancer (Acute) Type 2 diabetes mellitus with diabetic polyneuropathy (Acute) Essential hypertension (Acute) Hyperlipidemia LDL goal <70 (Acute) Past Medical History Medical History HTN (hypertension) Obesity (BMI 30-39.9) Alcohol abuse 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 Father Myocardial infarction CVD (cardiovascular disease) Mother Diabetes Sister Diabetes Surgical History Surgical History Hx of eye surgery History of excision of pterygium H/O colonoscopy Social History Social History Household Members: None Housing: Apartment Alcohol intake: current Alcohol intake frequency: a few times a week Alcohol type: beer and hard liquor Patient Tobacco Use Status: Current everyday Tobacco user Tobacco use type: Cigarette Cigarettes Per Day: 5 e-Cigarette/Vaping Use: Never Used Second Hand Smoke Exposure: No Advance Directives on File: No service: No Current occupational status: unemployed and disabled Cognitive needs: Yes Hearing needs: No Vision needs: No Meds Allergies Allergy/AdvReac Type Severity Reaction Status Date / Time Penicillins Allergy Intermediate Rash Verified 07/26/25 15:11 trazodone Allergy Intermediate palpitation Verified 07/19/25 14:42 s cyclobenzaprine (From AdvReac Intermediate Headache Verified 07/19/25 14:42 Flexeril) Home Medications ?Medication ?Instructions ?Recorded ?Confirmed ?Last Taken ?Type clopidogrel 75 mg tablet 75 mg PO DAILY 01/14/25 07/26/25 Unknown History Exam Height,Weight and Vital Signs: Height 5 ft 6 in Weight 81.193 kg Assessment and Plan Assessment Anesthesia Assessment: Chart Reviewed Documented by User: Adina Vealzquez MD 08/15/25 07:29 PMFSH Past Medical History Medical History HTN (hypertension) Obesity (BMI 30-39.9) Alcohol abuse 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 Father Myocardial infarction CVD (cardiovascular disease) Mother Diabetes Sister Diabetes Surgical History Surgical History Hx of eye surgery History of excision of pterygium H/O colonoscopy History of Problems with Anesthesia: No Social History Social History Household Members: None Housing: Apartment Alcohol intake: current Alcohol intake frequency: a few times a week Alcohol type: beer and hard liquor Patient Tobacco Use Status: Current everyday Tobacco user Tobacco use type: Cigarette Cigarettes Per Day: 5 e-Cigarette/Vaping Use: Never Used Second Hand Smoke Exposure: No Advance Directives on File: No service: No Current occupational status: unemployed and disabled Cognitive needs: Yes Hearing needs: No Vision needs: No Meds Allergies Allergy/AdvReac Type Severity Reaction Status Date / Time Penicillins Allergy Intermediate Rash Verified 07/26/25 15:11 trazodone Allergy Intermediate palpitation Verified 07/19/25 14:42 s cyclobenzaprine (From AdvReac Intermediate Headache Verified 07/19/25 14:42 Flexeril) Home Medications ?Medication ?Instructions ?Recorded ?Confirmed ?Last Taken ?Type clopidogrel 75 mg tablet 75 mg PO DAILY 01/14/25 07/26/25 Unknown History Exam Airway Mallampati Class: III TM Dist: >3cm Neck ROM: Full Loose/Missing/Broken Teeth: No Heart: RRR Lungs: CTA Assessment and Plan Assessment Anesthesia Assessment: Anesthesia Plan Discussed Final Anesthetic Review History of Problems with Anesthesia: No NPO: Yes ASA Class: III Final Preanesthetic Review: Meds/Allgs Chart Reviewed, Consent Obtained/Reviewed and Anes Risks/Benef Reviewed Patient Risk: Intermediate Procedure Risk: Low Anesthetic Plan Anesthetic Plan: MAC: Disposition: Standard PACU
[2025-08-15 06:23] VITALS: BP 186/91; PULSE 97; RESP 16; TEMP 36.8; O2SAT 100
[2025-08-15] MEDS: Tetracaine HCl/PF 0.5% Oph Sol 4 ML DROPS 1 DROP EYE-RIGHT (06:36)
[2025-08-15] MEDS: Lactated Ringers 500 ML 50 ML IV (06:39)
[2025-08-15] MEDS: Cyclopentolate 1 % Ophth Sol 2 ML DRPBTL 1 DROP EYE-RIGHT ×3 (06:40→06:50)
[2025-08-15] MEDS: Tropicamide 1 % Ophth Sol 3 ML BTL 1 DROP EYE-RIGHT ×3 (06:40→06:50)
[2025-08-15] MEDS: Ketorolac Tromethamine 0.5% Op 5 ML DROPS 1 DROP EYE-RIGHT ×3 (06:41→06:52)
[2025-08-15] MEDS: Phenylephrine HCL 2.5% Oph SoL 2 ML BOTTLE 1 DROP EYE-RIGHT ×3 (06:44→06:53)
[2025-08-15 06:50] LABS: Glucose, Whole Blood 152 mg/dL (60-115)
--- NOTE | 2025-08-15 07:26 | MHC.SHP ---
Pre-Procedural Eval Section A - 24 Hr Update-Section A only Date of Service: 08/15/25 The patient is an INPATIENT: No Changes since office visit: No Cold of Flu in the past 2 weeks, No New Medical Problems, No Changes in Medication and No Patient answered all questions The patient has been examined within 24 hours of the surgical procedure. The History & Physical has been completed within 30 days and I have reviewed it.: Yes Section B - Complete if H&P > 30 days Chief Complaint: Age-related nuclear cataract, right eye Allergies: Allergies Allergy/AdvReac Type Severity Reaction Status Date / Time Penicillins Allergy Intermediate Rash Verified 07/26/25 15:11 trazodone Allergy Intermediate palpitation Verified 07/19/25 14:42 s cyclobenzaprine (From AdvReac Intermediate Headache Verified 07/19/25 14:42 Flexeril) Plan Diagnosis/Plan: Unchanged I have reviewed the history and physical and performed a pertinent physical examination on my patient. No changes have occurred unless specified. Time Spent With Patient Time: Total time managing care of this patient today ____ minutes.
--- NOTE | 2025-08-15 07:27 | HO.PNOPHT ---
Ophthalmology Procedure Procedure Date of Service: 08/15/25 Ophthalmology Viscoelastic: Healon Duet Dual Pack Pro Ophthalmology Lenses: IOL Acrysof MP - MA60AC (23.5) Procedure Notes: PREOPERATIVE DIAGNOSIS: Decreased visual acuity right eye secondary to cataract POSTOPERATIVE DIAGNOSIS: Same PROCEDURE: Right cataract extraction with intraocular lens insertion SURGEON: Adan Lopez M.D. ANESTHESIA: Topical/MAC ESTIMATED BLOOD LOSS: None COMPLICATIONS: None After obtaining informed consent, the patient was brought to the operating room suite and placed in the supine position. After adequate sedation per anesthesia, topical drops of Tetracaine were given to the right eye. The eye was then prepped and draped in the usual sterile fashion. The operating room microscope was then positioned over the operative eye and a lid speculum placed. A paracentesis was created. Viscoelastic was then instilled into the anterior chamber. A three plane incision was then created temporally, utilizing a 2.85 mm keratome.Pooor diation required placement of a Malyugin Ring. Dense Cataract reqired VisiBlue.Capsulotomy forceps were then utilized to create a circular tear capsulotomy. Hydrodissection and hydrodelineation were carried out until adequate mobilization of the nucleus occurred. Phacoemulsification was then utilized to remove the dense central nucleus followed by removal of the cortical material utilizing the automated aspiration irrigation unit. Malyugin Ring was removed.Viscoelastic was instilled into the posterior capsular bag followed by placement of a posterior chamber intraocular lens into the Sulcus without difficulty. The residual Viscoelastic was then removed utilizing the automated IA machine. The wound was checked and found to be watertight. The patient tolerated the procedure well and the lid speculum was removed. Intracameral injection of Vigamox 0.1 mL followed by a subtenon injection of Kenalog-40 0.2 mL were administered. The patient will be seen in the a.m.
[2025-08-15 08:22] VITALS: BP 170/76; PULSE 71; RESP 18; TEMP 36.4; O2SAT 99
[2025-08-15 08:37] VITALS: BP 160/89; PULSE 74; RESP 18; TEMP 36.1; O2SAT 97
== END 2025-08-15 08:41 | disposition home or self-care (01) ==
PROVIDERS: PCP Internal Medicine; Visit Provider Ophthalmology
PROC: (CPT 66985; principal; 2025-08-15 07:30)
DX: H25.11 Age-related nuclear cataract, right eye (principal); H54.7 Unspecified visual loss; I10 Essential (primary) hypertension; E78.00 Pure hypercholesterolemia, unspecified; E11.42 Type 2 diabetes mellitus with diabetic polyneuropathy; E55.9 Vitamin D deficiency, unspecified; R80.9 Proteinuria, unspecified; Z86.73 Personal history of transient ischemic attack (TIA), and cerebral infarction without residual deficits; Z79.4 Long term (current) use of insulin; Z79.84 Long term (current) use of oral hypoglycemic drugs; Z79.82 Long term (current) use of aspirin; Z79.899 Other long term (current) drug therapy; Z88.0 Allergy status to penicillin; F17.210 Nicotine dependence, cigarettes, uncomplicated; Z98.890 Other specified postprocedural states; Z56.0 Unemployment, unspecified
CPT/HCPCS: 66984; 82947; J1920; J2003; J2250; J3010; J3301; V2630

== ENCOUNTER 2025-08-25 09:15 | Day surgery (SDC) | payer OTHER, SELFPAY ==
--- OUTSIDE RECORDS SUMMARY | 2025-08-24 14:46 | XMS_ITS | Clinical Summary ---
Author Organization [facility] Facility Address [address] [place] [id number] Care Team Providers Care Telephoto Engineer Name Role Phone Glory Castillo MD Primary Care Provider [phone] Allergies Active Allergy Reactions Criticality Noted Date [...] Medicaid [place] Care Teams Telephoto Engineer Relationship Specialty Start Date End Date Glory Castillo MD [address] [place], [place] PCP - General Internal Medicine 06/26/22
[2025-08-25 09:53] VITALS: BP 178/84; PULSE 75; RESP 16; TEMP 36.7; O2SAT 98; BMI 28.9
--- NOTE | 2025-08-25 10:59 | PC.NURSE ---
jardiance taken yesterday, Dr. Garrison aware okay to proceed.
--- NOTE | 2025-08-25 11:13 | P.CONAN_ITS ---
[facility] Active Problems Active Problems: All Active Problems Cataracts, bilateral (Acute) Preoperative clearance (Acute) Proteinuria (Acute) Microalbuminuria (Acute) Smoker (Acute) Encounter for Medicare annual wellness exam (Acute) Blurry vision (Acute) Screening for colon cancer (Acute) Adult general medical exam (Acute) Colonoscopy refused (Acute) CVA (cerebral vascular accident) (Acute) HTN (hypertension) (Acute) Obesity (BMI 30-39.9) (Acute) Alcohol abuse (Acute) Screening for prostate cancer (Acute) Type 2 diabetes mellitus with diabetic polyneuropathy (Acute) Essential hypertension (Acute) Hyperlipidemia LDL goal <70 (Acute) Past Medical History Medical History HTN (hypertension) Obesity (BMI 30-39.9) Alcohol abuse 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 Father Myocardial infarction CVD (cardiovascular disease) Mother Diabetes Sister Diabetes Family history of problems with anesthesia: No Surgical History Surgical History Hx of eye surgery History of excision of pterygium H/O colonoscopy History of Problems with Anesthesia: No Social History Social History Household Members: None Housing: Apartment Are you a primary care support representative to a significant other at home: No Do you presently have visiting nurse or other home services: No Alcohol intake: current Alcohol intake frequency: does not drink Alcohol type: beer and hard liquor Patient Tobacco Use Status: Never used Tobacco Tobacco use type: Cigarette Cigarettes Per Day: 5 e-Cigarette/Vaping Use: Never Used Second Hand Smoke Exposure: No Use of substances other than those prescribed or required for medical reasons: No Have you been hit, kicked, punched, or otherwise hurt by someone within the past year? If so, by whom?: No Are you DNR?: No Advance Directives: No Advance Directives Information Provided: Yes Advance Directives on File: No Poor oral hygiene: No service: No Current occupational status: unemployed and disabled Cognitive needs: Yes Hearing needs: No Vision needs: No Meds Allergies Allergy/AdvReac Type Severity Reaction Status Date / Time Penicillins Allergy Intermediate Rash Verified 07/26/25 15:11 trazodone Allergy Intermediate palpitation Verified 07/19/25 14:42 s cyclobenzaprine (From AdvReac Intermediate Headache Verified 07/19/25 14:42 Flexeril) Active Medications: Current Medications Povidone Iodine (Povidone Iodine 5 % Ophth Soln 30 Ml Bottle) 1 appl EYE-RIGHT PREOP PRN PRN Reason: Pre-Op Surgical Implant Prophy Home Medications ?Medication ?Instructions ?Recorded ?Confirmed ?Last Taken ?Type clopidogrel 75 mg tablet 75 mg PO DAILY 01/14/25 09/0 01/18 Unknown History Exam Height,Weight and Vital Signs: Height 5 ft 6 in Weight 81.193 kg Last Vital Signs Temp 98.0 F 08/25/25 09:53 Pulse 75 08/25/25 09:53 Resp 16 08/25/25 09:53 BP 178/84 H 08/25/25 09:53 Pulse Ox 98 08/25/25 09:53 O2 Del Method Room Air 08/25/25 09:53 Airway Mallampati Class: III TM Dist: <=3cm Neck ROM: Limited Heart: rrr Lungs: cts Assessment and Plan Assessment Anesthesia Assessment: Anesthesia Plan Discussed and Chart Reviewed Final Anesthetic Review Family History of Problems with Anesthesia: No History of Problems with Anesthesia: No NPO: Yes ASA Class: III Final Preanesthetic Review: No Changes in Pt Med Stat, Meds/Allgs Chart Reviewed, Consent Obtained/Reviewed and Anes Risks/Benef Reviewed Patient Risk: Intermediate Procedure Risk: Low Anesthetic Plan Anesthetic Plan: MAC: and Agree w/ Assess. and Plan Disposition: Standard PACU
--- NOTE | 2025-08-25 11:14 | MHC.SHP ---
Pre-Procedural Eval Section A - 24 Hr Update-Section A only Date of Service: 08/25/25 The patient is an INPATIENT: No Changes since office visit: No Cold of Flu in the past 2 weeks, No New Medical Problems, No Changes in Medication and No Patient answered all questions The patient has been examined within 24 hours of the surgical procedure. The History & Physical has been completed within 30 days and I have reviewed it.: Yes Section B - Complete if H&P > 30 days Chief Complaint: Cataract (lens) fragments in eye following catarac Allergies: Allergies Allergy/AdvReac Type Severity Reaction Status Date / Time Penicillins Allergy Intermediate Rash Verified 07/26/25 15:11 trazodone Allergy Intermediate palpitation Verified 07/19/25 14:42 s cyclobenzaprine (From AdvReac Intermediate Headache Verified 07/19/25 14:42 Flexeril) Plan Diagnosis/Plan: Unchanged I have reviewed the history and physical and performed a pertinent physical examination on my patient. No changes have occurred unless specified. Time Spent With Patient Time: Total time managing care of this patient today ____ minutes.
--- NOTE | 2025-08-25 11:14 | HO.PNOPHT ---
Ophthalmology Procedure Procedure Date of Service: 08/25/25 Ophthalmology Viscoelastic: Healyusuf Chirinost Dual Pack Pro Ophthalmology Lenses: Not Applicable Procedure Notes: PREOPERATIVE DIAGNOSIS:Retained Lens fragment Right Eye POSTOPERATIVE DIAGNOSIS: Same PROCEDURE: RRemoval of lens fragment SURGEON: Adan Lopez M.D. ANESTHESIA: Topical/MAC ESTIMATED BLOOD LOSS: None COMPLICATIONS: None After obtaining informed consent, the patient was brought to the operating room suite and placed in the supine position. After adequate sedation per anesthesia, topical drops of Tetracaine were given to the right eye. The eye was then prepped and draped in the usual sterile fashion. The operating room microscope was then positioned over the operative eye and a lid speculum placed. A paracentesis was created. Lidocaine MPF O.2 mll was given followed by Viscoelastic was then instilled into the anterior chamber. Phacoemulsification was then utilized to remove the lens fragment. The residual Viscoelastic was then removed utilizing the automated IA machine. Miochol was intilled. The wound was checked and found to be watertight. The patient tolerated the procedure well and the lid speculum was removed. Intracameral injection of Vigamox 0.1 mL The patient will be seen in the a.m.
[2025-08-25 11:36] LABS: Glucose, Whole Blood 107 mg/dL (60-115)
[2025-08-25 11:48] VITALS: BP 212/81; PULSE 62; RESP 12; TEMP 36.1; O2SAT 97
[2025-08-25 11:54] VITALS: BP 196/85; PULSE 52; RESP 14; O2SAT 98
== END 2025-08-25 12:17 | disposition home or self-care (01) ==
PROVIDERS: PCP Internal Medicine; Visit Provider Ophthalmology
PROC: (CPT 66985; principal; 2025-08-25 11:00)
DX: H59.021 Cataract (lens) fragments in eye following cataract surgery, right eye (principal); H57.11 Ocular pain, right eye; I10 Essential (primary) hypertension; E78.00 Pure hypercholesterolemia, unspecified; E11.42 Type 2 diabetes mellitus with diabetic polyneuropathy; Z86.73 Personal history of transient ischemic attack (TIA), and cerebral infarction without residual deficits; Z79.4 Long term (current) use of insulin; Z79.84 Long term (current) use of oral hypoglycemic drugs; Z79.899 Other long term (current) drug therapy; Z79.82 Long term (current) use of aspirin; Z88.0 Allergy status to penicillin
CPT/HCPCS: 66850; 82947; J2003; J2250; J3010; J3301

== ENCOUNTER 2025-10-24 16:55 | Outpatient (AMB) | payer OTHER, SELFPAY ==
[2025-10-24 17:18] VITALS: BP 138/80; PULSE 71; O2SAT 97; BMI 28.7
--- NOTE | 2025-10-24 17:18 | MHC.PC.OV ---
Vital Signs 10/24/25 17:18 Height 5 ft 6 in Weight 178 lb BMI 28.7 BP 138/80 Blood Pressure Location Lt brachial Position Sitting Pulse 71 Pulse Source Pulse Oximeter Pulse Oximetry (%) 97 Oxygen Delivery Method Room Air Intake Visit Reasons: pre op Copy Center Operator Required: No Accompanied by: Self / Same As Patient Allergies Penicillins Allergy (Intermediate, Verified 10/24/25 17:29) Rash trazodone Allergy (Intermediate, Verified 10/24/25 17:29) palpitations cyclobenzaprine (From Flexeril) Adverse Reaction (Intermediate, Verified 10/24/25 17:29) Headache Medication List - Last Reconciled 10/24/25 by Glory Gong MD amlodipine 10 mg PO DAILY 90 days aspirin 81 mg PO DAILY 90 days carvedilol (Coreg) 25 mg PO BID 90 days clopidogrel 75 mg PO DAILY empagliflozin (Jardiance) 10 mg PO DAILY ezetimibe 10 mg PO DAILY 90 days insulin degludec (Tresiba FlexTouch U-100 insulin) 10 units (0.1 mL) subcut DAILY 90 days lisinopril 10 mg PO BID metformin 500 mg PO BID pen needle, diabetic As directed once daily pregabalin 75 mg PO BID 30 days Tobacco use date assessed: 07/19/25 Fall risk assessment: No Falls in past year Last assessed Fall Risk: 10/24/25 Dental Screening Dental Screen Date: 07/19/25 HPI HPI Comments History of Present Illness Details The patient is a 70 year old individual presenting for a preoperative evaluation for an upcoming cataract surgery scheduled for October. The patient has a history of a pterygium excision in the right eye and reports that the eye is now doing well. The patient's medical history includes diabetes, with a recent A1c of 6.3. The patient reports associated neuropathy. The patient's current medications for diabetes and related conditions include Jardiance 10 mg, Tresiba 10 units, metformin 500 mg twice daily, and pregabalin 75 mg twice daily. The patient also has hypertension and is on amlodipine 10 mg, carvedilol, and lisinopril 10 mg. Other medications include aspirin, Plavix, and ezetimibe 10 mg. The patient has known allergies to penicillin, trazodone, and cyclobenzaprine (Flexeril). The patient reports new-onset, intolerable waist pain. EKG and labs were within normal limits. By RCRI patient is class 1 with 0.4% risk of cardiac complications. Patient is medically clear for surgery. 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 Father Myocardial infarction CVD (cardiovascular disease) Mother Diabetes Sister Diabetes Social History (Updated 10/24/25 @ 17:36 by Glory Gong MD) Household Members: None Housing: Apartment Are you a primary patient care coordinator to a significant other at home: No Do you presently have visiting nurse or other home services: No Alcohol intake: current Alcohol intake frequency: holidays/special occasions only Alcohol type: beer and hard liquor Patient Tobacco Use Status: Current everyday Tobacco user Tobacco use type: Cigarette Cigarettes Per Day: 4 e-Cigarette/Vaping Use: Never Used Second Hand Smoke Exposure: No service: No Current occupational status: unemployed and disabled Cognitive needs: Yes Hearing needs: No Vision needs: No Questionnaire Thrive Questionnaire Date Thrive assessed: 12/06/24 PANFILO-7 AMB Questionnaire PANFILO-7 Date PANFILO - 7 assessed: 12/06/24 Source: Developed by Drs. Idris Orellana, Tova Santiago, Andrey Mir and colleagues, with an educational royer from [employer]. Review of Systems Const All systems reviewed & are unremarkable except as noted in HPI and below Card Denies chest pain at rest, Denies chest pain with activity, Denies edema, Denies irregular heart rhythm, Denies claudication, Denies dyspnea, Denies dyspnea on exertion, Denies orthopnea, Denies paroxysmal nocturnal dyspnea and Denies slow heart rate Resp Denies cough, Denies dyspnea and Denies dyspnea on exertion GI Denies abdominal pain, Denies change in bowel habits, Denies excessive flatus, Denies nausea and Denies vomiting Skin/Breast Denies bleeding lesions, Denies changing lesions and Denies rash Neuro Denies lack of coordination Physical exam (Primary Care) Vital Signs: Last Vital Signs Pulse 71 10/24/25 17:18 BP 138/80 10/24/25 17:18 Pulse Ox 97 10/24/25 17:18 Oxygen Delivery Method Room Air 10/24/25 17:18 BMI result Body Mass Index 28.7 Tobacco/Smoking Status: Tobacco use Status Tobacco use date assessed 07/19/25 10/24/25 17:19 Patient Tobacco Use Status Current everyday Tobacco 10/24/25 17:36 Tobacco use type Cigarette 10/24/25 17:36 e-Cigarette/Vaping Use Never Used 10/24/25 17:36 Thrive Assessment: Date of Thrive Assessment Date Thrive assessed 12/06/24 10/24/25 17:19 Resp Effort & Inspection: normal respiratory effort Auscultation: clear to auscultation bilaterally Cardio Jugular venous distension: no JVD Rate: regular rate Rhythm: regular rhythm Heart sounds: S1 normal heart sound present and S2 normal heart sound present Extrem General: Yes full ROM Results AMB Hemoglobin A1c AMB Hemoglobin A1c 6.3 % Last Edit by Nerissa Escalante CMA on 10/24/25 17:52 Results Reviewed Results Reviewed: Laboratory Last Values Hgb A1c (Clinic) 6.3 % (4.0-6.0) H 10/24/25 17:18 Coding Level of Care Code Est Pt Level 3 (32722) Diagnoses Pre-op evaluation Z01.818 Type 2 diabetes mellitus with diabetic polyneuropathy, with long-term current use of insulin E11.42; Z79.4 Diabetes mellitus halfway insulin use: with vermin exterminator use Time Spent (min) 19 Assessment & Plan Assessment & Plan (1) Pre-op evaluation: Code(s): Z01.818 - Encounter for other preprocedural examination Category: Medical (2) Type 2 diabetes mellitus with diabetic polyneuropathy: Code(s): E11.42 - Type 2 diabetes mellitus with diabetic polyneuropathy Category: Medical Qualifiers: Diabetes mellitus vermin exterminator insulin use: with vermin exterminator use Qualified Code(s): E11.42 - Type 2 diabetes mellitus with diabetic polyneuropathy; Z79.4 - group home (current) use of insulin Plan Plan 1. Preoperative Surgical Clearance The patient is cleared for the upcoming eye surgery. The normal EKG and laboratory results from June will be utilized for clearance, and no new studies will be ordered. Patient is medically clear for left cataract extraction and intraocular lens implant. Orders: Orders AMB Hemoglobin A1c Today Z13.9 - Encounter for screening, unspecified Medications: New meloxicam 15 mg PO DAILY 30 tabs 0RF 30 days Refilled aspirin 81 mg PO DAILY 90 tabs 1RF 90 days pregabalin 75 mg PO BID 60 caps 0RF 30 days
--- OUTSIDE RECORDS SUMMARY | 2025-10-24 18:50 | XMS_ITS | Encounter Summary ---
Author Organization [facility] Address [address] [place] [address] Care Team Providers Care Slitter And Rewinder Name Role Phone Fay Webb MD Primary Care Provider [phone] Reason for Visit * Reason Onset Date Comments REFERRAL 08/13/2016 Encounter Details Date Type Department Care Team Description 08/13/2016 Telephone Physiatry - [address] [address] Patrice Portillo DO REFERRAL Social History Tobacco Use Types Packs/Day Years Used Date Smoking Tobacco: Some Days Cigarettes 0.5 Smokeless Tobacco: Never Comments:started @ age 16 Alcohol Use Standard Drinks/Week Comments Yes 0 (1 standard drink = 0.6 oz pur e alcohol) Sex Assigned at Date Recorded Not on file documented as of this encounter Miscellaneous Notes * Telephone Encounter - Andrew Ferrari - 08/13/2016 9:16 AM EDT Patient was referred to Physiatry for back pain, spinal stenosis. Tried to contact patient several times by phone and sent out letter with no response. Patient will be taken off of referrals report. FYI documented in this encounter Plan of Treatment Not on file documented as of this encounter Visit Diagnoses Not on filedocumented in this encounter Care Teams Slitter And Rewinder Relationship Specialty Start Date End Date Fay Webb MD [address] [place] [address] PCP - General Internal Medicine 09/14/15 documented as of this encounter
--- OUTSIDE RECORDS SUMMARY | 2025-10-24 18:50 | XMS_ITS | Encounter Summary ---
Author Organization [facility] Address [address] [place] [address] Care Team Providers Care Electrician Apprentice Powerhouse Name Role Phone Fay Webb MD Primary Care Provider [phone] Reason for Visit * Reason Comments E-prescribe Rx Request Encounter Details Date Type Department Care Team Description 05/09/[address] [facility] [address] [place], [place] [id number] Fay Webb MD [address] [place] [address] [id number] E-prescribe Rx Request Social History Tobacco Use Types Packs/Day Years Used Date Smoking Tobacco: Some Days Cigarettes 0.5 Smokeless Tobacco: Never Comments:started @ age 16 Alcohol Use Standard Drinks/Week Comments Yes 0 (1 standard drink = 0.6 oz pur e alcohol) Sex Assigned at Date Recorded Not on file documented as of this encounter Miscellaneous Notes * Telephone Encounter - Justina Simms M.A. - 05/09/2017 11:15 AM EDT Msg left * Telephone Encounter - Nu Conley PA-C - 05/09/2017 11:11 AM EDT Uncontrolled diabetes - Dr. Montano instructed 1 week follow up about 1 month ago. Patient needs mahesh seen. Nu Conley PA-C * Telephone Encounter - Lisa Staton - 05/09/2017 10:28 AM EDT Patient would like script to be: E-PRESCRIBED/FAXED TO PHARMACY WHEN WAS THE PATIENT'S LAST APPOINTMENT IN ADULT MEDICINE? 04/16/17 WHEN WAS THE LAST TIME THE PATIENT SAW THEIR PCP? 12/02/16 Does patient have an upcoming appointment? No-unable to reach left voicemaill to call for appointment due to refill request. Appt due (THE MEDICATION REQUESTED IS ON THE MED LIST ABOVE) All of the medications requested were on the CURRENT MEDS list Did you check the Pharmacy information above?: YES Patient wants: 30 -day supply Is this a mail order prescription request ? NO Patients current insurance carrier is: Payor: [facility] MEDICAID / Plan: [facility] MEDICAID O $0 SCHLATER / Product Type: HMO [id number] documented in this encounter Plan of Treatment Not on file documented as of this encounter Visit Diagnoses Not on filedocumented in this encounter Care Teams Electrician Apprentice Powerhouse Relationship Specialty Start Date End Date Fay Webb MD [address] [place] [address] PCP - General Internal Medicine 09/14/15 documented as of this encounter
--- OUTSIDE RECORDS SUMMARY | 2025-10-24 18:50 | XMS_ITS | Clinical Summary ---
Author Organization [facility] Address [address] [place] [address], [place] [address] Care Team Providers Care Ductfixing Plumber Name Role Phone Glory Castillo MD Primary Care Provider [phone] Allergies Active Allergy Reactions Criticality Noted Date [...] Medicaid [place] Care Teams Ductfixing Plumber Relationship Specialty Start Date End Date Glory Castillo MD [address] [place], [place] PCP - General Internal Medicine 06/26/22
--- OUTSIDE RECORDS SUMMARY | 2025-10-24 18:50 | XMS_ITS | Encounter Summary ---
Author Organization [facility] Address [address] [place] [address] Care Team Providers Care Rolfer Name Role Phone Fay Webb MD Primary Care Provider [phone] Encounter Details Date Type Department Care Team Description 07/01/2016 Release of Information Medical Records [address] [place] [id number] Abstract, Provider Social History Tobacco Use Types [...] on filedocumented in this encounter Care Teams Rolfer Relationship Specialty Start Date End Date Fay Webb MD [address] [place] [address] PCP - General Internal Medicine 09/14/15 documented as of this encounter
--- OUTSIDE RECORDS SUMMARY | 2025-10-24 18:50 | XMS_ITS | Encounter Summary ---
Author Organization [facility] Address [address] [place] [address] Care Team Providers Care Kosher Inspector Name Role Phone Fay Webb MD Primary Care Provider [phone] Encounter Details Date Type Department Care Team Description 12/15/2015 Release of Information Medical Records [address] [place] [id number] Abstract, Provider Social History Tobacco Use Types [...] on filedocumented in this encounter Care Teams Kosher Inspector Relationship Specialty Start Date End Date Fay Webb MD [address] [place] [address] PCP - General Internal Medicine 09/14/15 documented as of this encounter
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
--- OUTSIDE RECORDS SUMMARY | 2025-10-24 18:50 | XMS_ITS | Encounter Summary ---
Author Organization [facility] Address [address] [place] [address] Care Team Providers Care Product Manufacturing Professional Name Role Phone Fay Webb MD Primary Care Provider [phone] Encounter Details Date Type Department Care Team Description 04/12/2017 Hospital Medical Records [address] [place] [address] Torie Hanson Social History Tobacco Use Types [...] on filedocumented in this encounter Care Teams Product Manufacturing Professional Relationship Specialty Start Date End Date Fay Webb MD [address] [place] [address] PCP - General Internal Medicine 09/14/15 documented as of this encounter
--- OUTSIDE RECORDS SUMMARY | 2025-10-24 18:50 | XMS_ITS | Encounter Summary ---
Author Organization [facility] Address [address] [place] [address] Care Team Providers Care Validation Technician Name Role Phone Fay Webb MD Primary Care Provider [phone] Encounter Details Date Type Department Care Team Description 04/12/2017 Hospital Medical Records [address] [place] [id number] Idris Stone MD Social History Tobacco Use [...] on filedocumented in this encounter Care Teams Validation Technician Relationship Specialty Start Date End Date Fay Webb MD [address] [place] [address] PCP - General Internal Medicine 09/14/15 documented as of this encounter
== END 2025-10-24 17:41 | disposition home or self-care (01) ==
LOC: HO.HMCH 16:55
PROVIDERS: PCP Internal Medicine; Visit Provider Internal Medicine
DX: Z01.818 Encounter for other preprocedural examination (principal); E11.42 Type 2 diabetes mellitus with diabetic polyneuropathy; Z79.4 Long term (current) use of insulin; Z13.9 Encounter for screening, unspecified

== ENCOUNTER → 2025-10-24 16:55 | Outpatient (BNVA) | payer OTHER, SELFPAY | PROVIDERS: PCP Internal Medicine; Visit Provider Internal Medicine | DX: Z01.818 Encounter for other preprocedural examination (principal); H26.9 Unspecified cataract; E11.42 Type 2 diabetes mellitus with diabetic polyneuropathy; R10.9 Unspecified abdominal pain; Z79.4 Long term (current) use of insulin; Z79.899 Other long term (current) drug therapy | CPT/HCPCS: 83036; 99212 ==